=== PATIENT | male | born 1970 | race Caucasian/White ===

== ENCOUNTER 2024-10-16 16:39 | Outpatient (REF) | payer MEDICARE, MEDICAID, SELFPAY ==
[2024-10-17 22:57] LABS: Campylobacter PCR Negative (Negative); Salmonella PCR Negative (Negative); Shiga Toxin PCR Negative (Negative); Shigella/Enteroinvasive Ecoli Negative (Negative)
== END 2024-10-16 16:40 | disposition home or self-care (01) ==
LOC: NCHCN 16:39
PROVIDERS: PCP Internal Medicine; Visit Provider Physician Assistant
DX: R19.7 Diarrhea, unspecified (principal)
CPT/HCPCS: 87505; 87177

== ENCOUNTER → 2024-11-08 13:41 | Outpatient (BNVA) | payer MEDICARE, MEDICAID, SELFPAY | PROVIDERS: PCP Internal Medicine; Referring Provider Internal Medicine; Visit Provider Surgery | DX: K40.90 Unilateral inguinal hernia, without obstruction or gangrene, not specified as recurrent (principal); G80.9 Cerebral palsy, unspecified; Z91.81 History of falling; I73.00 Raynaud's syndrome without gangrene; R13.10 Dysphagia, unspecified; K59.09 Other constipation; R32 Unspecified urinary incontinence; R62.50 Unspecified lack of expected normal physiological development in childhood | CPT/HCPCS: 99203 ==

== ENCOUNTER 2025-09-09 10:10 | Observation (INO) | payer MEDICARE, MEDICAID, SELFPAY ==
[2025-09-09 10:29] VITALS: BP 146/94; PULSE 141; RESP 20; TEMP 36.7; O2SAT 97
--- NOTE | 2025-09-09 10:30 | RT.EKG_ITS ---
APPROVED REPORT Exam: Resting ECG Reason for Exam: tachycardia Patient Location: E HR:125 bpm ECG Measurements Heart Rate 125 AXIS AR 132 P 65 QRSd 78 QRS 72 QT 291 T 42 QTc 420 Conclusion Sinus tachycardia...rate> 99
[2025-09-09 10:39] VITALS: BP 146/94; PULSE 141; RESP 20; TEMP 36.7; O2SAT 97
--- NOTE | 2025-09-09 10:41 | ED.GENADUL_ITS ---
Discharge Plan Disposition Patient Disposition: Admit to [facility] Condition: Stable Discharge Details Clinical Impression: Gallstone pancreatitis Primary Care Provider: Buck Clark ED Provider: Harley Whitfield Home Meds and New Rx's Prescriptions: No Action No Known Home Meds HPI General Date/Time Provider Initiated Documentation: 09/09/25 10:40 . HPI Narrative: 55 year-old male presents to ED today by POV/ambulating with homecare providers with a chief complaint of vomiting this morning, dark colored. Patient is semi- verbal with cerebral palsy. Quality described as unable to qualify, no radiation to fever, cough, inability to swallow, incontinence, syncope, altered mental status from baseline. Severity is described as unable to quantify. Palliating factors include nothing specific attempted. Provoking factors include nothing specific. Events leading up to the incident/Associated Symptoms: Patient is relatively healthy other than his developmental delay and takes no medications. Patient not anticoagulated. Related Data Home Medications Medication Instructions Recorded Confirmed Unknown [No Known Home Meds] 09/09/25 1 11/09/24 Allergies Allergy/AdvReac Type Severity Reaction Status Date / Time Barbiturates Allergy Unknown Other (See Verified 09/09/25 10:49 Comment) pseudoephedrine Allergy Unknown Other (See Verified 09/09/25 10:49 Comment) actified Allergy Unknown Uncoded 09/09/25 10:49 Cat gut sutures Allergy Unknown Uncoded 09/09/25 10:49 sedatives Allergy Unknown Uncoded 09/09/25 10:49 General Stated Complaint: Nausea/Vomit/Diar DOC: 3 Review of Systems All systems reviewed & are unremarkable except as noted in HPI and below Exam Narrative Exam Narrative: GENERAL APPEARANCE: Well-nourished, non-toxic, awake and alert, atraumatic, mild acute distress. SKIN: Warm, pink, dry, intact, without rashes/lesions/ulcerations. HEAD: Normocephalic, atraumatic, normal hair distribution for gender/age. EYES: Normal conjunctiva, no exudates on lids/lashes. ENT: Nares patent, no circumoral cyanosis, no facial swelling NECK: Supple, trachea midline, painless cervical ROM. LUNGS/CHEST: Lungs CTA bilaterally- no rhonchi/rales/wheezes diffusely, non- labored respirations, normal A/P diameter, symmetrical expansion, no chest wall deformity HEART (CV/PV): Regular rate and rhythm without murmur, no peripheral edema, no JVD. ABDOMEN: Soft, non-distended, no guarding, no overt pain response to palpation, negative Blair's sign. MSK: Normal ROM, no swelling/deformity to bilateral UEs or LEs, moving all extremities without weakness, no cyanosis, spine midline without tenderness, normal curvature. NEURO: Mental Status - follows spontaneous activity, engages verbally spontaneously No facial droop, no forehead involvement. Motor: No focal weakness Sensory: sensation intact to light touch globally. Gait NT PSYCH: euthymic, cooperative, pleasant, baseline speech Course Vital Signs Vital signs: Vital Signs Temperature 36.7 C 09/09/25 10:29 Pulse 141 H 09/09/25 10:29 Respiratory Rate 20 09/09/25 10:29 Blood Pressure 146/94 H 09/09/25 10:29 Pulse Oximetry 97 09/09/25 10:29 Temperature 36.7 C 09/09/25 10:39 Temperature Source Oral 09/09/25 10:39 Pulse 141 H 09/09/25 10:39 Respiratory Rate 20 09/09/25 10:39 Blood Pressure 146/94 H 09/09/25 10:39 Blood Pressure Position Sitting 09/09/25 10:39 Pulse Oximetry 97 09/09/25 10:39 Oxygen Delivery Method Room Air 09/09/25 10:29 Oxygen Flow Rate 0 09/09/25 10:29 Medical Decision Making This dictation utilizes [id number] dictation software and may contain unedited grammatical errors. 55 year-old male presents to ED today by POV/ambulating with homecare providers with a chief complaint of vomiting this morning, dark colored. Patient is semi- verbal with cerebral palsy. Quality described as unable to qualify, no radiation to fever, cough, inability to swallow, incontinence, syncope, altered mental status from baseline. Severity is described as unable to quantify. Palliating factors include nothing specific attempted. Provoking factors include nothing specific. Events leading up to the incident/Associated Symptoms: Patient is relatively healthy other than his developmental delay and takes no medications. Patients' medical history: Left inguinal hernia, difficulty swallowing. Family and social history: Lives at home with care providers, eats a normal diet. Pertinent exam findings / vital signs include benign abdomen, benign cardiopulmonary exam with sinus tachycardia, nontoxic and afebrile, negative Blair sign. Differential / pathologies of concern include gastroenteritis, gastritis, GI bleeding, biliary colic, renal colic, sepsis, aspiration pneumonia. Diagnostic studies of: - CBC, CMP, lactate, lipase, troponin, TSH, magnesium, blood cultures, XR chest, CT ABD/pelvis with contrast, US ABD RUQ, EKG. - CBC shows very nonspecific mild leukocytosis WBCs 11.7 without left shift - Lactate mildly elevated 2.2 likely in setting of vomiting - CMP is unremarkable - Serial troponins negative - Lipase elevated to 192 - TSH within normal limits - Blood cultures pending - EKG shows sinus tachycardia without ischemic changes or diffuse ST depressions or T wave abnormalities - CT ABD/pelvis shows a distended gallbladder with a gas bubble indicating possible stone, normal CBD - X-ray chest shows no acute findings - Ultrasound shows multiple gallstones with normal gallbladder wall thickness and a normal CBD Interventions of: - 1 g IV Tylenol, 1 L IVF NS, 3.375g Zosyn - Consulted with hospitalist Dr. Charles at 1440 presented for admission after consultation with Dr. Mariee at 1430-repeat lipase in the morning, serial examinations, +/- MRCP tomorrow versus elective lap katey - Updated the patient's sister who is his medical guardian at 1456 ED Course/Assessment/Plan: 55-year-old male with cerebral palsy presents with vomiting this morning, elevated lipase and some distention of gallbladder on CT with reassuring ultrasound, I discussed with surgery on-call Dr. Mariee, he likely had a brief episode of gallstone pancreatitis and due to his developmental delay admission is prudent for recheck of lipase tomorrow and further imaging studies possible at that time, hospitalist service accepted the patient he has received Tylenol and fluids, surgery recommends antibiotics which were added in the ER, starting Zosyn. Disposition of gallstone pancreatitis. Patient verbalized understanding of the plan and return to ED criteria and engaged in shared decision making. Medical Records Medical records reviewed: Yes I reviewed the patient's medical records. Imaging Data Radiologic Study: Attestation: I personally reviewed and interpreted this imaging study as follows: Imaging: CT Scan Radiologist's impression: EXAM: CT ABDOMEN PELVIS W CLINICAL HISTORY: vomiting; nonverbal, abdominal pain. TECHNIQUE: Imaging Protocol: Axial computed tomography images with coronal and sagittal reformatted images were created and reviewed CONTRAST MATERIAL: Intravenous: Omnipaque-350 75cc Oral: None COMPARISON: CR XR CHEST 1V IN DI DEPT from 09/09/2025 FINDINGS: VISUALIZED LUNG BASES: No nodules nor pleural effusions evident. ABDOMEN: There is no ascites. LIVER: There are no focal hepatic lesions evident. No dilated intrahepatic ducts. GALLBLADDER/BILIARY: Gallbladder is mildly distended. There are no calcified gallstones but there is a solitary tiny hypodensity in the gallbladder which may be evidence of a noncalcified gallstone (series 8/image 40). The gallbladder wall does not appear edematous and there is no pericholecystic fluid. CBD is not dilated. PANCREAS: No evidence of pancreatic mass nor dilatation of the pancreatic duct. SPLEEN: Spleen is not enlarged. No obvious intrasplenic lesions. Splenic and portal veins are patent. ADRENALS: There are no significant adrenal masses. KIDNEYS:There are few bilateral tiny sub cm cortical cysts. These do not require further workup. No solid renal masses. No calculi nor hydronephrosis.. ABDOMINAL AORTA: Abdominal aorta is not enlarged. LYMPH NODES:There is no retroperitoneal nor paraaortic adenopathy. ABDOMINAL WALL: No evidence of significant anterior abdominal wall nor inguinal hernia. GI: There is some circumferential thickening of the lower esophagus evident. May indicate esophagitis. No obvious abnormality in the stomach and duodenum and no evidence of small-bowel obstruction, free air, nor abscess. PELVIS: GI: The appendix is difficult to identify.Redundant sigmoid. No obvious diverticulitis. LYMPH NODES: There is no intrapelvic nor inguinal adenopathy. REPRODUCTIVE: Prostate size normal. Seminal vesicles unremarkable. URINARY BLADDER: Mild uniform thickening of the urinary bladder. No calculi ureterovesical junctions. OSSEOUS: No fractures and no significant osseous lesions. IMPRESSION: 1. Moderately distended gallbladder. No calcified gallstones but there is a single tiny gas bubble in the gallbladder lumen which may be associated with a subtle gallstone not able to be visualized on CT scan. Therefore recommend ultrasound if clinically indicated. The CBD is not dilated. 2. There is circumferential thickening of the lower esophagus. May represent esophagitis or other pathology. Appropriate follow-up recommended. 3. Appendix not able to be identified. Report called by myself to ER physician 09/09/2025 at 12:37 p.m. Radiologic Study #2: Attestation: I personally reviewed and interpreted this imaging study as follows: Imaging: X-Ray Radiologist's impression: EXAM: XR CHEST 1V IN DI DEPT CLINICAL HISTORY: tachycardia. TECHNIQUE: 2D digital imaging was performed. COMPARISON: No exams were available for comparison FINDINGS: Single AP portable view. Heart size is upper normal. The mediastinum is not widened. Lungs are clear. No infiltrates nor obvious pleural effusions. IMPRESSION: No acute pulmonary findings on this single AP portable view of the chest. Radiologic Study #3: Attestation: I personally reviewed and interpreted this imaging study as follows: Imaging: Ultrasound Radiologist's impression: EXAM: US ABDOMEN LIMITED CLINICAL HISTORY: cholecystitis? gallstone pancreatitis? TECHNIQUE: Ultrasound abdomen performed using standard protocol. COMPARISON: CT CT ABDOMEN PELVIS W from 09/09/2025 FINDINGS: There is no ascites evident. LIVER: There are no hepatic lesions evident nor dilatation of intrahepatic ducts. GALLBLADDER/BILIARY: Multiple gallstones in the gallbladder lumen. Gallbladder wall thickness is upper normal. There is no pericholecystic fluid The common hepatic duct isnot dilated, measuring 3-4mm at the level of homero hepatis. PANCREAS: There is no evidence of pancreatic mass nor dilatation of the pancreatic duct. RIGHT KIDNEY:No evidence of solid mass, calculus, nor hydronephrosis. IMPRESSION: 1. Cholelithiasis. There multiple gallstones noted. Gallbladder wall thickness is upper normal. CBD is not dilated. 2. No other significant ultrasound findings in the right upper quadrant. 3. There is no ascites. Lab Data Lab results reviewed: Yes I reviewed the patient's lab results. Labs: 09/09/25 11:49 Blood Blood Culture - Pending 09/09/25 11:10 Blood Blood Culture - Pending Laboratory Tests Range/Units 09/09/25 09/09/25 11:10 12:13 WBC (4.4-10.8) 10^3/uL 11.79 H RBC (4.36-5.78) 10^6/uL 5.21 Hgb (13.5-17.5) g/dL 16.1 Hct (40.0-50.0) % 45.9 MCV (80-95) fL 88 MCH (27.0-33.0) pg 30.9 MCHC (32.0-36.0) % 35.1 RDW (11.8-14.1) % 12.2 Plt Count (130-400) 10^3/uL 257 MPV (8.0-11.0) fL 8.7 Immature Gran % % 0.3 Neutrophils % % 90.8 Lymphocytes % % 3.5 Monocytes % % 5.0 Eosinophils % % 0.1 Basophils % % 0.3 Nucleated RBC % (0.0-0.3) % 0.0 Absolute Neutrophils (1.2-6.7) 10^3/uL 10.71 H Absolute Lymphocytes (1.2-3.4) 10^3/uL 0.41 L Absolute Monocytes (0.1-0.8) 10^3/uL 0.59 Absolute Eosinophils (0.0-0.7) 10^3/uL 0.01 Absolute Basophils (0.0-0.2) 10^3/uL 0.04 VBG Lactate (<or=2.0) mmol/L 2.2 H* Sodium (136-145) mmol/L 139 Potassium (3.5-5.1) mmol/L 4.0 Chloride (98-107) mmol/L 99 Carbon Dioxide (21.0-32.0) mmol/L 29.1 Anion Gap (3-11) mmol/L 10.9 BUN (7-18) mg/dL 17 Creatinine (0.70-1.30) mg/dL 1.2 Est GFR (CKD-EPI 2020) (mL/min/1.73m2) 70.53 Glucose (74-106) mg/dL 150 H Calcium (8.5-10.1) mg/dL 8.8 Magnesium (1.8-2.4) mg/dL 2.1 Total Bilirubin (0.2-1.0) mg/dL 0.7 AST (15-37) U/L 16 ALT (16-63) U/L 27 Alkaline Phosphatase (46-116) U/L 124 H Troponin I (<or=76) ng/L 9 7 Total Protein (6.4-8.2) g/dL 8.0 Albumin (3.4-5.0) g/dL 4.0 Lipase (<78) U/L 192 H TSH (0.36-3.74) uIU/mL 1.69 PFSH All Active Problems (Updated 09/09/25 @ 15:03 by DENNYS Dickerson) Gallstone pancreatitis (Acute) Gallstone pancreatitis (Acute) Left inguinal hernia (Acute) Risk for falls (Acute) Urinary incontinence (Acute) Raynaud's disease (Acute) Insomnia (Acute) Difficulty swallowing (Acute) Developmental delay, moderate (Acute) Chronic constipation (Acute) Cerebral palsy (Acute) Medical History (Updated 09/09/25 @ 15:03 by DENNYS Dickerson) Encounter for colorectal cancer screening using Cologuard test 09/26/2024 Cologuard, Negative, repeat 3 years Backache Social History Smoking/Tobacco Use Status: Never Smoking risk assessment performed?: Yes Alcohol Intake: never Substance use type: does not use
--- NOTE | 2025-09-09 11:00 | DI.CT_ITS ---
Exam(s) CT ABDOMEN PELVIS W EXAM: CT ABDOMEN PELVIS W CLINICAL HISTORY: vomiting; nonverbal, abdominal pain. TECHNIQUE: Imaging Protocol: Axial computed tomography images with coronal and sagittal reformatted images were created and reviewed CONTRAST MATERIAL: Intravenous: Omnipaque-350 75cc Oral: None COMPARISON: CR XR CHEST 1V IN DI DEPT from 09/09/2025 FINDINGS: VISUALIZED LUNG BASES: No nodules nor pleural effusions evident. ABDOMEN: There is no ascites. LIVER: There are no focal hepatic lesions evident. No dilated intrahepatic ducts. GALLBLADDER/BILIARY: Gallbladder is mildly distended. There are no calcified gallstones but there is a solitary tiny hypodensity in the gallbladder which may be evidence of a noncalcified gallstone (series 8/image 40). The gallbladder wall does not appear edematous and there is no pericholecystic fluid. CBD is not dilated. PANCREAS: No evidence of pancreatic mass nor dilatation of the pancreatic duct. SPLEEN: Spleen is not enlarged. No obvious intrasplenic lesions. Splenic and portal veins are patent. ADRENALS: There are no significant adrenal masses. KIDNEYS:There are few bilateral tiny sub cm cortical cysts. These do not require further workup. No solid renal masses. No calculi nor hydronephrosis.. ABDOMINAL AORTA: Abdominal aorta is not enlarged. LYMPH NODES:There is no retroperitoneal nor paraaortic adenopathy. ABDOMINAL WALL: No evidence of significant anterior abdominal wall nor inguinal hernia. GI: There is some circumferential thickening of the lower esophagus evident. May indicate esophagitis. No obvious abnormality in the stomach and duodenum and no evidence of small-bowel obstruction, free air, nor abscess. PELVIS: GI: The appendix is difficult to identify.Redundant sigmoid. No obvious diverticulitis. LYMPH NODES: There is no intrapelvic nor inguinal adenopathy. REPRODUCTIVE: Prostate size normal. Seminal vesicles unremarkable. URINARY BLADDER: Mild uniform thickening of the urinary bladder. No calculi ureterovesical junctions. OSSEOUS: No fractures and no significant osseous lesions. IMPRESSION: 1. Moderately distended gallbladder. No calcified gallstones but there is a single tiny gas bubble in the gallbladder lumen which may be associated with a subtle gallstone not able to be visualized on CT scan. Therefore recommend ultrasound if clinically indicated. The CBD is not dilated. 2. There is circumferential thickening of the lower esophagus. May represent esophagitis or other pathology. Appropriate follow-up recommended. 3. Appendix not able to be identified. Report called by myself to ER physician 09/09/2025 at 12:37 p.m. RADIATION DOSE DELIVERED: 630.04mGy.cm Total DLP DATA REPOSITORY: All CT scans at this facility are submitted to the National Radiology Data Registry (NRDR) Dose Index Registry (DIR) with the [employer] (A[employer]). RADIATION OPTIMIZATION: All CT scans at this facility use at least one of these dose optimization techniques: automated exposure control; mA and/or kV adjustment per patient size (includes targeted exams where dose is matched to clinical indication); or iterative reconstruction.
--- NOTE | 2025-09-09 11:00 | DI.RAD_ITS ---
Exam(s) XR CHEST 1V IN DI DEPT EXAM: XR CHEST 1V IN DI DEPT CLINICAL HISTORY: tachycardia. TECHNIQUE: 2D digital imaging was performed. COMPARISON: No exams were available for comparison FINDINGS: Single AP portable view. Heart size is upper normal. The mediastinum is not widened. Lungs are clear. No infiltrates nor obvious pleural effusions. IMPRESSION: No acute pulmonary findings on this single AP portable view of the chest. DATA REPOSITORY: RADIATION DOSE DELIVERED:
[2025-09-09 11:29] LABS: Abs Immature Grans 0.04 10^3/uL (0.0-0.06); HCT 45.9 % (40.0-50.0); HGB 16.1 g/dL (13.5-17.5); Immature Grans % 0.3 %; MCH 30.9 pg (27.0-33.0); MCHC 35.1 % (32.0-36.0); MCV 88 fL (80-95); MPV 8.7 fL (8.0-11.0); Platelet Count 257 10^3/uL (130-400); RBC 5.21 10^6/uL (4.36-5.78); RDW 12.2 % (11.8-14.1); RDW-SD 39.1 fL; WBC 11.79 10^3/uL (4.4-10.8)
[2025-09-09] MEDS: Normal Saline - Diluent 50 ML VIAL IJ (12:08)
[2025-09-09] MEDS: Omnipaque 350 MG/ML 100 ML BTL IJ (12:08)
[2025-09-09] MEDS: Normal Saline Flush 10 ML SYR IVP (12:09)
[2025-09-09] MEDS: Normal Saline 1,000 ML 1000 ML IV (12:12)
[2025-09-09] MEDS: ACETAMINOPHEN 1,000 MG/100 ML BAG 400 MG IVPB ×2 (12:12→20:25)
[2025-09-09 12:18] LABS: ALT 27 U/L (16-63); AST 16 U/L (15-37); Albumin 4.0 g/dL (3.4-5.0); Alkaline Phosphatase 124 U/L (46-116); Anion Gap 10.9 mmol/L (3-11); BUN 17 mg/dL (7-18); Bilirubin, Total 0.7 mg/dL (0.2-1.0); CO2 29.1 mmol/L (21.0-32.0); Calcium 8.8 mg/dL (8.5-10.1); Chloride 99 mmol/L (98-107); Glucose 150 mg/dL (74-106); Lipase 192 U/L (<78); Magnesium 2.1 mg/dL (1.8-2.4); Potassium 4.0 mmol/L (3.5-5.1); Sodium 139 mmol/L (136-145); TSH (W/Ref FT4) 1.69 uIU/mL (0.36-3.74); Total Protein 8.0 g/dL (6.4-8.2); Troponin I 9 ng/L (<or=76)
--- NOTE | 2025-09-09 12:30 | DI.US_ITS ---
Exam(s) US ABDOMEN LIMITED EXAM: US ABDOMEN LIMITED CLINICAL HISTORY: cholecystitis? gallstone pancreatitis? TECHNIQUE: Ultrasound abdomen performed using standard protocol. COMPARISON: CT CT ABDOMEN PELVIS W from 09/09/2025 FINDINGS: There is no ascites evident. LIVER: There are no hepatic lesions evident nor dilatation of intrahepatic ducts. GALLBLADDER/BILIARY: Multiple gallstones in the gallbladder lumen. Gallbladder wall thickness is upper normal. There is no pericholecystic fluid The common hepatic duct isnot dilated, measuring 3-4mm at the level of homero hepatis. PANCREAS: There is no evidence of pancreatic mass nor dilatation of the pancreatic duct. RIGHT KIDNEY:No evidence of solid mass, calculus, nor hydronephrosis. IMPRESSION: 1. Cholelithiasis. There multiple gallstones noted. Gallbladder wall thickness is upper normal. CBD is not dilated. 2. No other significant ultrasound findings in the right upper quadrant. 3. There is no ascites. DATA REPOSITORY:
[2025-09-09 12:45] LABS: Troponin I 7 ng/L (<or=76)
--- NOTE | 2025-09-09 14:12 | W.SURGCON ---
Date of service: 09/09/25 Time of Service: 14:12 Assessment and Plan Assessment and plan (1) Gallstone pancreatitis: Status: Acute Assessment and plan: The elevated lipase is certainly consistent with pancreatitis, and based on the gallstones seen on the ultrasound, that is most likely the etiology. At this point, there is no compelling biochemical evidence of obstruction of the common bile duct nor does the ultrasound suggest the possibility of a common bile duct stone. Hopefully, this stone that close the pancreatitis is already passed. For now, he should be admitted for resuscitation, and symptom management. We should repeat the LFTs and lipase tomorrow. If those are all reassuring and trending in the correct direction, then laparoscopic cholecystectomy to reduce the likelihood of gallstone pancreatitis recurrence is most appropriate. If there is any evidence of increasing bilirubin, or ongoing pancreatitis, then though should be addressed before surgery. History of Present Illness History of Present Illness Chief Complaint: Vomiting Narrative: Shiva is 55 years old. He has cerebral palsey and is assisted at home with a healthcare provider and respite assistance. Today, they found him with large volume non-bloody emesis. Otherwise, he appeared his usual self. They brought him to the Emergency Department where he was found to have a mild leukocytosis. He also had an elevated lipase level. He underwent a CT scan of the abdomen and pelvis that suggested cholelithiasis. Follow up ultrasound was consistent with gallstones without evidence of biliary ductal dilation or acute cholecystitis. Review of Systems Narrative: His mental status precludes accurate ROS, but care providers deny any meaningful complaints from constitutional, cardio, respiratory, musculoskeletal or hematologic systems. He had vomiting mentioned above and maybe decreased urine output. PFSH All Active Problems (Updated 09/09/25 @ 15:29 by Rozina Ma APRN) Hyperlactatemia (Acute) On deep vein thrombosis (DVT) prophylaxis (Acute) Nausea & vomiting (Acute) Pain management (Acute) Cholelithiasis (Acute) Gallstone pancreatitis (Acute) Gallstone pancreatitis (Acute) Left inguinal hernia (Acute) Risk for falls (Acute) Urinary incontinence (Acute) Raynaud's disease (Acute) Insomnia (Acute) Difficulty swallowing (Acute) Developmental delay, moderate (Acute) Chronic constipation (Acute) Cerebral palsy (Acute) Medical History (Updated 09/09/25 @ 15:29 by Rozina Francesca, STRUCTURAL IRON [employer]RECTOR) Encounter for colorectal cancer screening using Cologuard test 09/26/2024 Cologuard, Negative, repeat 3 years Backache Social History Smoking/Tobacco Use Status: Never Smoking risk assessment performed?: Yes Alcohol Intake: never Substance use type: does not use Housing: house Exam Const General: cooperative and not ill appearing Nutritional Appearance: thin Orientation: alert and awake Eyes General: appearance normal, both eyes and all related structures Neck Neck: normal visual inspection, full ROM and no lymphadenopathy GI Inspection: normal to inspection and non-distended Palpation: soft, no guarding and nontender Percussion: normal to percussion Auscultation: normal bowel sounds Skin General skin exam: no rashes or lesions noted Neuro General: patient alert and patient awake Extrem General: normal to inspection Results Last Vital Signs Temp 98.0 F 09/09/25 10:39 Pulse 141 H 09/09/25 10:39 Resp 20 09/09/25 10:39 BP 146/94 H 09/09/25 10:39 Pulse Ox 97 09/09/25 10:39 Labs 09/09/25 11:10 09/09/25 11:10 Labs: Laboratory Results - last 24 hr 09/09/25 09/09/25 11:10 12:13 WBC 11.79 H RBC 5.21 Hgb 16.1 Hct 45.9 MCV 88 MCH 30.9 MCHC 35.1 RDW 12.2 Plt Count 257 MPV 8.7 Immature Gran % 0.3 Neutrophils % 90.8 Lymphocytes % 3.5 Monocytes % 5.0 Eosinophils % 0.1 Basophils % 0.3 Nucleated RBC % 0.0 Absolute Neutrophils 10.71 H Absolute Lymphocytes 0.41 L Absolute Monocytes 0.59 Absolute Eosinophils 0.01 Absolute Basophils 0.04 VBG Lactate 2.2 H* Sodium 139 Potassium 4.0 Chloride 99 Carbon Dioxide 29.1 Anion Gap 10.9 BUN 17 Creatinine 1.2 Est GFR (CKD-EPI 2020) 70.53 Glucose 150 H Calcium 8.8 Magnesium 2.1 Total Bilirubin 0.7 AST 16 ALT 27 Alkaline Phosphatase 124 H Troponin I 9 7 Total Protein 8.0 Albumin 4.0 Lipase 192 H TSH 1.[address] scan report/results: report reviewed and image reviewed CT scan - pelvis: report reviewed and image reviewed Abdominal ultrasound report/results: report reviewed and image reviewed
--- NOTE | 2025-09-09 14:32 | W.PM.HP.N ---
Date of service: 09/09/25 Time of Service: 14:32 Assessment and Plan Assessment and plan (1) Gallstone pancreatitis: Status: Acute Assessment and plan: Continue IV fluid: LR at 100cc/hr Low-fat pureed diet Lipase, CMP, magnesium and CBC in the morning (2) Cholelithiasis: Status: Acute Assessment and plan: As per abdominal ultrasound findings Surgical consult completed please read notes Inpatient surgery versus outpatient depending on biochemical marker trends (3) Pain management: Status: Acute Assessment and plan: As needed acetaminophen As per Guardian : Kimberlyn Mariee- low tolerance sensitivity to opiods and would prefer them not to be given -Ok with APAP and Ketorolac As needed ketorolac (4) Nausea & vomiting: Status: Acute Assessment and plan: As needed ondansetron (5) Hyperlactatemia: Status: Acute Assessment and plan: Lactate - 2.2 Repeat pending (6) On deep vein thrombosis (DVT) prophylaxis: Status: Acute Assessment and plan: Low mostly with heparin Discussed with Dr. Charles History of Present Illness History of Present Illness Chief Complaint: vomitiung, abd pain Narrative: This 55 yo male with PMHx Severe cognitive delay, Raynaud's, constipation, insomnia presented to the ED for evaluation of sudden vomiting. CT of the abdomen and pelvis showed a moderately distended gallbladder. No calcified gallstones but there is a single tiny gas bubble in the gallbladder lumen which may be associated with a subtle gallstone; circumferential thickening of the lower esophagus concerning for esophagitis, Lab results were unremakable except for a Lipase at 192, ALk at 124, lactate 2.2, glucose at 150 , WBC of 11.79, Cr 1.2 no baseline available. The abdominal showed cholelithiasis w multiple gallstones and gallbladder wall thickness in the upper normal; CBD was not dilated. Surgical consult completed with Dr. Mariee confirmed findings consistent with pancreatitis without compelling evidence of obstruction of the common bile duct and most likely stone has been passed already but recommends admission for observation for resuscitation and symptom management with LFTs and lipase in the morning; depending on trend management would be laparoscopic cholecystectomy versus surgical management or MRCP. He was admitted to the medical surgical floor by hospitalist team for further evaluation and management. In the ED patient was treated with antiemetic IV fluid and pain meds medicine. Patient reports: Patient unable to report or denies symptoms d/t baseline communication as per PMHx above. 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 Full CODE STATUS confirmed by calling guardian/sister : Kimberlyn Mariee at [phone]- would like to be call at this number when needed. Review of Systems All systems reviewed & are unremarkable except as noted in HPI and below PFSH All Active Problems (Updated 09/09/25 @ 15:29 by Rozina Ma APRN) Hyperlactatemia (Acute) On deep vein thrombosis (DVT) prophylaxis (Acute) Nausea & vomiting (Acute) Pain management (Acute) Cholelithiasis (Acute) Gallstone pancreatitis (Acute) Gallstone pancreatitis (Acute) Left inguinal hernia (Acute) Risk for falls (Acute) Urinary incontinence (Acute) Raynaud's disease (Acute) Insomnia (Acute) Difficulty swallowing (Acute) Developmental delay, moderate (Acute) Chronic constipation (Acute) Cerebral palsy (Acute) Medical History (Updated 09/09/25 @ 15:29 by Rozina Ma APRN) Encounter for colorectal cancer screening using Cologuard test 09/26/2024 Cologuard, Negative, repeat 3 years Backache Social History Smoking/Tobacco Use Status: Never Smoking risk assessment performed?: Yes Alcohol Intake: never Substance use type: does not use Meds Allergies and Home Medications Allergies Allergy/AdvReac Type Severity Reaction Status Date / Time Barbiturates Allergy Unknown Other (See Verified 09/09/25 10:49 Comment) pseudoephedrine Allergy Unknown Other (See Verified 09/09/25 10:49 Comment) actified Allergy Unknown Uncoded 09/09/25 10:49 Cat gut sutures Allergy Unknown Uncoded 09/09/25 10:49 sedatives Allergy Unknown Uncoded 09/09/25 10:49 Home Medications Medication Instructions Recorded Confirmed Type Unknown [No Known Home Meds] 09/09/25 09/09/25 History Exam Narrative Exam Narrative: Alert and oriented x 4, no focal neurological deficit, unlabored breathing, S1-S2 regular, no murmur, PPP x 4, abdomen is nondistended soft tender left upper quadrant no guarding , negative Blair's sign, no CVA tenderness moves all 4 extremities Results Labs 09/09/25 11:10 09/09/25 11:10 Labs: Laboratory Results - last 24 hr 09/09/25 09/09/25 11:10 12:13 WBC 11.79 H RBC 5.21 Hgb 16.1 Hct 45.9 MCV 88 MCH 30.9 MCHC 35.1 RDW 12.2 Plt Count 257 MPV 8.7 Immature Gran % 0.3 Neutrophils % 90.8 Lymphocytes % 3.5 Monocytes % 5.0 Eosinophils % 0.1 Basophils % 0.3 Nucleated RBC % 0.0 Absolute Neutrophils 10.71 H Absolute Lymphocytes 0.41 L Absolute Monocytes 0.59 Absolute Eosinophils 0.01 Absolute Basophils 0.04 VBG Lactate 2.2 H* Sodium 139 Potassium 4.0 Chloride 99 Carbon Dioxide 29.1 Anion Gap 10.9 BUN 17 Creatinine 1.2 Est GFR (CKD-EPI 2020) 70.53 Glucose 150 H Calcium 8.8 Magnesium 2.1 Total Bilirubin 0.7 AST 16 ALT 27 Alkaline Phosphatase 124 H Troponin I 9 7 Total Protein 8.0 Albumin 4.0 Lipase 192 H TSH 1.69 Last Vital Signs Temp 36.7 C 09/09/25 10:39 Pulse 141 H 09/09/25 10:39 Resp 20 09/09/25 10:39 BP 146/94 H 09/09/25 10:39 Pulse Ox 97 09/09/25 10:39 Time Spent Time spent with Patient: >75 minutes Time was spent: preparing to see the patient(eg.review tests), obtaining and/or reviewing separately otained hiistory, ordering medications,tests, procedures, referring, communicating with other health managed care specialist, indepentently interpreting results, counseling the patient, care coordination and other
[2025-09-09] MEDS: PIPERACILLIN/TAZO 3.375 GM in Normal Saline 50 ML IVPB (15:07)
--- NOTE | 2025-09-09 15:53 | W.PC.ACHO ---
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 State since morning they have witnessed him vomiting x 4. Medical / Surgical History (Last Updated 11/07/24 @ 09:24 by Catie Cardenas CMA) Encounter for colorectal cancer screening using Cologuard test Backache Most Recent Vital Signs Temperature 36.7 C 09/09/25 10:39 Temperature Source Oral 09/09/25 10:39 Pulse 141 H 09/09/25 10:39 Respiratory Rate 20 09/09/25 10:39 Blood Pressure 146/94 H 09/09/25 10:39 Blood Pressure Position Sitting 09/09/25 10:39 Pulse Oximetry 97 09/09/25 10:39 Oxygen Delivery Method Room Air 09/09/25 10:29 Oxygen Flow Rate 0 09/09/25 10:29 Allergies Barbiturates Allergy (Unknown, Verified 09/09/25 10:49) Other (See Comment) on referral from PCP, unable to assess criticality pseudoephedrine Allergy (Unknown, Verified 09/09/25 10:49) Other (See Comment) on referral from PCP, unable to access criticality actified Allergy (Uncoded 09/09/25 10:49) Unknown Cat gut sutures Allergy (Uncoded 09/09/25 10:49) Unknown sedatives Allergy (Uncoded 09/09/25 10:49) Unknown Active Medications Generic Name Dose Route Start Last Admin Trade Name Freq PRN Reason Stop Dose Admin Iohexol 100 ml 09/09/25 12:15 09/09/25 12:08 Omnipaque 350 Mg/Ml 100 Ml Btl IJ 10/09/25 23:59 100 ml DIRECTED CRISTINA Administration Sodium Chloride 0 ml 09/09/25 12:04 09/09/25 12:09 Normal Saline Flush 10 Ml Syr IVP 10 ml PRN PRN Administration Sodium Chloride 50 ml 09/09/25 12:15 09/09/25 12:08 Normal Saline - Diluent 50 Ml Vial IJ 50 ml DIRECTED CRISTINA Administration IV IV Catheter Type [Right Saline Lock Antecubital] IV Catheter Gauge [Right 20 Antecubital] Diet Orders Category Date Time Status DIET [Fat Restricted] [DIET] Nutrition 09/09/25 Dinner Active DIET [Fat Restricted] [DIET] Nutrition 09/09/25 Dinner Active Diagnostics 09/09/25 09/09/25 09/09/25 Range/Units Unknown 12:13 11:10 WBC 11.79 H (4.4-10.8) 10^3/uL RBC 5.21 (4.36-5.78) 10^6/uL Hgb 16.1 (13.5-17.5) g/dL Hct 45.9 (40.0-50.0) % MCV 88 (80-95) fL MCH 30.9 (27.0-33.0) pg MCHC 35.1 (32.0-36.0) % RDW 12.2 (11.8-14.1) % Plt Count 257 (130-400) 10^3/uL MPV 8.7 (8.0-11.0) fL Immature Gran % 0.3 % Neutrophils % 90.8 % Lymphocytes % 3.5 % Monocytes % 5.0 % Eosinophils % 0.1 % Basophils % 0.3 % Nucleated RBC % 0.0 (0.0-0.3) % Absolute Neutrophils 10.71 H (1.2-6.7) 10^3/uL Absolute Lymphocytes 0.41 L (1.2-3.4) 10^3/uL Absolute Monocytes 0.59 (0.1-0.8) 10^3/uL Absolute Eosinophils 0.01 (0.0-0.7) 10^3/uL Absolute Basophils 0.04 (0.0-0.2) 10^3/uL VBG Lactate Pending 2.2 H* (<or=2.0) mmol/L Sodium 139 (136-145) mmol/L Potassium 4.0 (3.5-5.1) mmol/L Chloride 99 (98-107) mmol/L Carbon Dioxide 29.1 (21.0-32.0) mmol/L Anion Gap 10.9 (3-11) mmol/L BUN 17 (7-18) mg/dL Creatinine 1.2 (0.70-1.30) mg/dL Est GFR (CKD-EPI 2020) 70.53 (mL/min/1.73m2) Glucose 150 H (74-106) mg/dL Calcium 8.8 (8.5-10.1) mg/dL Magnesium 2.1 (1.8-2.4) mg/dL Total Bilirubin 0.7 (0.2-1.0) mg/dL AST 16 (15-37) U/L ALT 27 (16-63) U/L Alkaline Phosphatase 124 H (46-116) U/L Troponin I 7 9 (<or=76) ng/L Total Protein 8.0 (6.4-8.2) g/dL Albumin 4.0 (3.4-5.0) g/dL Lipase 192 H (<78) U/L TSH 1.69 (0.36-3.74) uIU/mL 09/09/25 11:49 Blood Culture - Pending Blood 09/09/25 11:10 Blood Culture - Pending Blood Intake and Output - 24 Hour Total 09/09/25 10:10 thru 09/09/25 14:59 Intake Total 1110 Balance 1110 Weight 63.049 kg Intake: IV 1110 Other: Stool Characteristics Soft Brown Emesis Description Bile Falls Risk Assessment History of Falls Previous History 09/09/25 14:58 Contributing Factors Unstable,Impairments, 09/09/25 14:58 Incontinence Ambulatory Aids Uses ambulatory device + 09/09/25 14:58 Tubes/Lines None 09/09/25 14:58 Gait Evaluation W/any additional score 09/09/25 14:58 Cognition Cognitive impairment 09/09/25 14:58 Fall Total Score 89 09/09/25 14:58 Level of Risk Maximum Risk 09/09/25 14:58 Problems (Last Updated 11/07/24 @ 09:24 by Catie Cardenas, [facility]) Hyperlactatemia (Acute) On deep vein thrombosis (DVT) prophylaxis (Acute) Nausea & vomiting (Acute) Pain management (Acute) Cholelithiasis (Acute) Gallstone pancreatitis (Acute) Gallstone pancreatitis (Acute) Attestation Statement: By documenting the first initial, last name, and credentials of the reporting nurse below, both parties acknowledge that all relevant information regarding the patient handoff has been communicated, and that all questions have been addressed to ensure continuity and safety of care. Additional Patient Information/Comments: Paged at [phone], report called at [phone], and ED called back at 1546. [address] RIOS currently running zosyn. Report Received From: Marci Bravo ED RN
[2025-09-09 16:16] VITALS: BP 118/82; PULSE 99; RESP 17; TEMP 36.9; O2SAT 100
[2025-09-09] MEDS: Lactated Ringers 1,000 ML 100 ML IV (17:55)
--- NOTE | 2025-09-09 18:14 | NUR.NOTE ---
Nursing Note: This nurse spoke with caregiver Jeanne Bravo and was told that Kimberlyn (sister) is guardian. Her best contact number is her cell and is [phone]. Kimberlyn signed off on pts HIPAA and consent to treat on the legal guardian line. This nurse reached out and was able to speak with Kimberlyn. This nurse updated Kimberlyn that the pt had been admitted to [facility] and received verbal permission to give ordered medications after reviewing them with her. This nurse requested that Kimberlyn send us a copy of the guardianship paperwork to fax # [phone] which Kimberlyn confirms that she will. Kimberlyn states her personal email is [email or web address] which we can send forms to be completed if needed. This nurse updated provider (Rozina Gandhi NP) who confirmed that she was able to touch base with Kimberlyn as well.
[2025-09-09 19:55] VITALS: BP 122/75; PULSE 111; RESP 20; TEMP 37; O2SAT 97
[2025-09-10] MEDS: Lactated Ringers 1,000 ML 100 ML IV (03:34)
[2025-09-10] MEDS: ACETAMINOPHEN 1,000 MG/100 ML BAG 400 MG IVPB ×2 (03:36→12:41)
[2025-09-10 04:05] VITALS: BP 125/82; PULSE 93; RESP 16; TEMP 36.8; O2SAT 95
[2025-09-10 06:50] LABS: Abs Immature Grans 0.03 10^3/uL (0.0-0.06); HCT 38.9 % (40.0-50.0); HGB 13.3 g/dL (13.5-17.5); Immature Grans % 0.5 %; MCH 30.7 pg (27.0-33.0); MCHC 34.2 % (32.0-36.0); MCV 90 fL (80-95); MPV 8.7 fL (8.0-11.0); Platelet Count 223 10^3/uL (130-400); RBC 4.33 10^6/uL (4.36-5.78); RDW 12.4 % (11.8-14.1); RDW-SD 40.4 fL; WBC 6.53 10^3/uL (4.4-10.8)
[2025-09-10 07:23] LABS: ALT 19 U/L (16-63); AST 15 U/L (15-37); Albumin 3.3 g/dL (3.4-5.0); Alkaline Phosphatase 97 U/L (46-116); Anion Gap 6.7 mmol/L (3-11); BUN 14 mg/dL (7-18); Bilirubin, Direct 0.2 mg/dL (0.0-0.2); Bilirubin, Total 0.7 mg/dL (0.2-1.0); CO2 29.3 mmol/L (21.0-32.0); Calcium 8.4 mg/dL (8.5-10.1); Chloride 106 mmol/L (98-107); Glucose 98 mg/dL (74-106); Lipase 62 U/L (<78); Magnesium 2.1 mg/dL (1.8-2.4); Potassium 4.0 mmol/L (3.5-5.1); Sodium 142 mmol/L (136-145); Total Protein 6.3 g/dL (6.4-8.2)
[2025-09-10 07:37] VITALS: BP 110/76; PULSE 89; RESP 17; TEMP 36.4; O2SAT 97
--- NOTE | 2025-09-10 08:07 | W.PM.PROGNOT ---
Date of Service Date of service: 09/10/25 Time of Service: 08:05 Assessment and Plan Assessment and plan (1) Gallstone pancreatitis: Status: Acute Assessment and plan: On exam, Shiva continues to have abdominal tenderness and guarding. AM labs are reassuring that gallstone was passed. Will continue NPO status, until we determine if he will undergo laparoscopic cholecystectomy later today, which will reduce his risk of gallstone pancreatitis in the future. Will continue with IV fluids and pain management. Subjective Subjective Interval history since last seen: Arrive with Shiva, resting. Exam Const General: cooperative, healthy appearing and comfortable Resp Effort & Inspection: normal respiratory effort, no audible wheezes and no cough GI Inspection: normal to inspection and non-distended Palpation: soft, guarding and tender Objective Last Vital Signs Temp 36.4 C L 09/10/25 07:37 Pulse 89 09/10/25 07:37 Resp 17 09/10/25 07:37 BP 110/76 09/10/25 07:37 Pulse Ox 97 09/10/25 07:37 Laboratory Results - last 24 hr 09/09/25 09/09/25 09/09/25 11:10 12:13 18:02 WBC 11.79 H RBC 5.21 Hgb 16.1 Hct 45.9 MCV 88 MCH 30.9 MCHC 35.1 RDW 12.2 Plt Count 257 MPV 8.7 Immature Gran % 0.3 Neutrophils % 90.8 Lymphocytes % 3.5 Monocytes % 5.0 Eosinophils % 0.1 Basophils % 0.3 Nucleated RBC % 0.0 Absolute Neutrophils 10.71 H Absolute Lymphocytes 0.41 L Absolute Monocytes 0.59 Absolute Eosinophils 0.01 Absolute Basophils 0.04 VBG Lactate 2.2 H* 1.8 Sodium 139 Potassium 4.0 Chloride 99 Carbon Dioxide 29.1 Anion Gap 10.9 BUN 17 Creatinine 1.2 Est GFR (CKD-EPI 2020) 70.53 Glucose 150 H Calcium 8.8 Magnesium 2.1 Total Bilirubin 0.7 Conjugated Bilirubin AST 16 ALT 27 Alkaline Phosphatase 124 H Troponin I 9 7 Total Protein 8.0 Albumin 4.0 Lipase 192 H TSH 1.69 09/10/25 06:24 WBC 6.53 RBC 4.33 L Hgb 13.3 L D Hct 38.9 L MCV 90 MCH 30.7 MCHC 34.2 RDW 12.4 Plt Count 223 MPV 8.7 Immature Gran % 0.5 Neutrophils % 69.1 Lymphocytes % 15.2 Monocytes % 11.5 Eosinophils % 3.2 Basophils % 0.5 Nucleated RBC % 0.0 Absolute Neutrophils 4.52 Absolute Lymphocytes 0.99 L Absolute Monocytes 0.75 Absolute Eosinophils 0.21 Absolute Basophils 0.03 VBG Lactate Sodium 142 Potassium 4.0 Chloride 106 Carbon Dioxide 29.3 Anion Gap 6.7 BUN 14 Creatinine 1.0 Est GFR (CKD-EPI 2020) 87.78 Glucose 98 Calcium 8.4 L Magnesium 2.1 Total Bilirubin 0.7 Conjugated Bilirubin 0.2 AST 15 ALT 19 Alkaline Phosphatase 97 Troponin I Total Protein 6.3 L Albumin 3.3 L Lipase 62 TSH Time Spent with Patient Time Spent with Patient: <25 minutes Time was spent: preparing to see the patient(eg.review tests), obtaining and/or reviewing separately otained hiistory and indepentently interpreting results
--- NOTE | 2025-09-10 09:16 | INITIAL_ITS ---
Date of service: 09/10/25 Time of Service: 09:17 Care Management Initial Assmt Initial Assessment Reason for Hospitalization: gallstone pancreatitis Functional Status/Living Situation Patient Presentation: Shiva presented to the ED yesterday with his caregivers with c/o vomiting dark colored material earlier in the day. Shiva was found to have gallstone pancreatitis. He had a surgical consult and was admitted to observation for pain control and IVF, as he has been made NPO for a question of a cholecystectomy. Shiva has cerebral palsy, is not fully verbal. Shiva has 24/7 caregivers, and his sister, Kimberlyn, is his guardian. Shiva seemed happy and not in pain when CM met with him this morning. He was not able to fully converse with CM. CM spoke with Shiva's sister and guardian, Kimberlyn. She was not pleased with staff that she was not able to speak with anyone regarding Shiva. [facility] did not have Kimberlyn listed as a HIPAA contact, and guardianship paperwork was not in the chart. CM encouraged Kimberlyn to bring in the paperwork, and complete a new HIPAA. CM attempted to call Kimberlyn back later in the day with some updated news, but had to leave a message. Shiva had his caregivers all present this afternoon. It was apparent to CM that Shiva and his caregivers really care about each other. CM was present when the provider spoke with the caregivers. The surgeon reached out to Kimberlyn earlier today. Plan is for a cholecystectomy tomorrow, but surgery needs the permission of Kimberlyn to proceed. Kimberlyn had not yet returned the call to surgery. Clem, one of the caregivers, stated that he would notify Kimberlyn that she needs to call surgery. Town of Residence: [place] Resides with: Other Significant Other/Family: Local (sister, Kimberlyn is Shiva's guardian) Caregiver/Guardian: Kimberlyn Mariee- guardian caregivers, Clem and Jeanne Soria Employment Status: Disabled Instrumental Activities of Daily Living (ADLs): Requires support Medications Medication Management: No Issues/Barriers identified Advance Directives Advance Directives: Do you have an Advance Directive: AD On File at [facility]: N 03/20/24, 16:16 Date Asked 06/30/12 03/20/24, 16:16 AD Date Reviewed COLST On File at [facility] COLST Date Scanned Code Status Resuscitation Status Full Code Insurance Coverage/Financial Issues Insurance: Medicare Part A & B - Medicaid [facility] Care Team Visit Care Team Role Provider Type Buck Clark Primary Care Provider NON-[facility] STAFF PHYSICIAN DENNYS Dickerson Emergency Provider PHYSICIANS ASSISTANT Christopher Charles MD Admit Provider [facility] STAFF PHYSICIAN Attending Provider Discharge Potential Discharge Needs: PCP F/U Appt and Surgical F/U Appt Anticipated Barriers to Discharge: None Identified Patient/Family Education Needs: Review discharge instructions, discuss Ask Me Three Plan: Shiva will likely have a cholecystectomy tomorrow. He will likely remain overnight tomorrow and discharge next day with no new services. Shiva will transport home in a private vehcile. CM will continue to follow and update the plan as needed. Social Determinants of Health Screening Social Determinants of health last assessed in clinic: 09/10/25 Will the Patient Participate in the Screening?: Yes Do you worry about having a steady place to live?: no Problems where you live: no known problems In the past 12 months, have you had to go without electric, gas, oil or water in your home?: no 1. Within the past 12 months, we worried whether our food would run out before we got money to buy more.: Don't know/refused 2. Within the past 12 months, the food we bought just didn't last and we didn't have money to get more.: Don't know/refused Has lack of transportation kept you from medical appointments or from doing things needed for daily living?: no Has anyone in your life made you feel unsafe or unsupported?: no How hard is it for you to pay for the very basics like food, housing, medical care, and heating? Would you say it is:: Not hard at all Do you want help finding or keeping work or a job?: I do not need or want help If for any reason you need help with day-to-day activities such as bathing, preparing meals, shopping, managing finances, etc., do you get the help you need?: I could use a little more help How often do you feel lonely or isolated from those around you?: Never Do you speak a language other than Lao at home?: No Does the patient want assistance with any of the above?: No Health Related Social Needs Health related social needs: problems with daily activities (Z73.9) Health related social needs details: Pt has caregivers: Jeanne, Clem, and Natalie Hickman. Kimberlyn (sister) is guardian. PFSH All Active Problems (Updated 09/09/25 @ 15:29 by Rozina Ma APRN) Hyperlactatemia (Acute) On deep vein thrombosis (DVT) prophylaxis (Acute) Nausea & vomiting (Acute) Pain management (Acute) Cholelithiasis (Acute) Gallstone pancreatitis (Acute) Gallstone pancreatitis (Acute) Left inguinal hernia (Acute) Risk for falls (Acute) Urinary incontinence (Acute) Raynaud's disease (Acute) Insomnia (Acute) Difficulty swallowing (Acute) Developmental delay, moderate (Acute) Chronic constipation (Acute) Cerebral palsy (Acute) Medical History (Updated 09/09/25 @ 15:29 by Rozina Ma APRN) Encounter for colorectal cancer screening using Cologuard test 09/26/2024 Cologuard, Negative, repeat 3 years Backache Social History Smoking/Tobacco Use Status: Never Smoking risk assessment performed?: Yes Alcohol Intake: never Substance use type: does not use Housing: house
--- NOTE | 2025-09-10 09:26 | PGE_ITS ---
Date of Service Date of service: 09/10/25 Time of Service: 09:26 Assessment and Plan Assessment and plan (1) Gallstone pancreatitis: Status: Acute Assessment and plan: Continue IV fluid: LR at 100cc/hr plan for NPO for OR lap cholecystectomy cancelled -consider e-initiating ceftriaxone and metronidazole prior to OR - will hold for now as - Trend CMP, magnesium and CBC and Inflammatory marker Low-fat pureed diet if tolerating enteral intake s/p OR (2) Cholelithiasis: Status: Acute Assessment and plan: As per abdominal ultrasound findings on presentation Surgical consult completed and seen this AM :please read notes -Dr Mariee will contacted guardian/ sister for OR today --but no return of call this PM Diet resumed NPO post midnight for possibilty for OR on 09/11/25 (3) Pain management: Status: Acute Assessment and plan: Continue a acetaminophen and as needed ketorolac As per Guardian : Kimberlyn Mariee- low tolerance sensitivity to opiods and would prefer them not to be given -Ok with APAP and Ketorolac PT consult (4) Nausea & vomiting: Status: Acute Assessment and plan: Ongoing as needed ondansetron (5) Hyperlactatemia: Status: Acute Assessment and plan: Lactate - 2.2 Repeat 1.8 (6) On deep vein thrombosis (DVT) prophylaxis: Status: Acute Assessment and plan: LMWH on hold now SCD's Discussed with Dr. Charles Subjective Subjective Patient reports: no new complaints, feels better, tolerating liquids well, tolerating a regular diet, voiding w/o difficulty and other (NPO as per Sx for OR today for cholescystectomy ); denies no bowel movement, diarrhea, vomiting, shortness of breath or fever Exam Narrative Exam Narrative: Alert and oriented x 4, no focal neurological deficit, unlabored breathing, S1- S2 regular, no murmur, PPP x 4, abdomen is nondistended soft non-tender - guarding , negative Blair's sign, no CVA tenderness moves all 4 extremities Objective Last Vital Signs Temp 36.4 C L 09/10/25 07:37 Pulse 89 09/10/25 07:37 Resp 17 09/10/25 07:37 BP 110/76 09/10/25 07:37 Pulse Ox 97 09/10/25 07:37 Laboratory Results - last 24 hr 09/09/25 09/09/25 09/09/25 11:10 12:13 18:02 WBC 11.79 H RBC 5.21 Hgb 16.1 Hct 45.9 MCV 88 MCH 30.9 MCHC 35.1 RDW 12.2 Plt Count 257 MPV 8.7 Immature Gran % 0.3 Neutrophils % 90.8 Lymphocytes % 3.5 Monocytes % 5.0 Eosinophils % 0.1 Basophils % 0.3 Nucleated RBC % 0.0 Absolute Neutrophils 10.71 H Absolute Lymphocytes 0.41 L Absolute Monocytes 0.59 Absolute Eosinophils 0.01 Absolute Basophils 0.04 VBG Lactate 2.2 H* 1.8 Sodium 139 Potassium 4.0 Chloride 99 Carbon Dioxide 29.1 Anion Gap 10.9 BUN 17 Creatinine 1.2 Est GFR (CKD-EPI 2020) 70.53 Glucose 150 H Calcium 8.8 Magnesium 2.1 Total Bilirubin 0.7 Conjugated Bilirubin AST 16 ALT 27 Alkaline Phosphatase 124 H Troponin I 9 7 Total Protein 8.0 Albumin 4.0 Lipase 192 H TSH 1.69 09/10/25 06:24 WBC 6.53 RBC 4.33 L Hgb 13.3 L D Hct 38.9 L MCV 90 MCH 30.7 MCHC 34.2 RDW 12.4 Plt Count 223 MPV 8.7 Immature Gran % 0.5 Neutrophils % 69.1 Lymphocytes % 15.2 Monocytes % 11.5 Eosinophils % 3.2 Basophils % 0.5 Nucleated RBC % 0.0 Absolute Neutrophils 4.52 Absolute Lymphocytes 0.99 L Absolute Monocytes 0.75 Absolute Eosinophils 0.21 Absolute Basophils 0.03 VBG Lactate Sodium 142 Potassium 4.0 Chloride 106 Carbon Dioxide 29.3 Anion Gap 6.7 BUN 14 Creatinine 1.0 Est GFR (CKD-EPI 2020) 87.78 Glucose 98 Calcium 8.4 L Magnesium 2.1 Total Bilirubin 0.7 Conjugated Bilirubin 0.2 AST 15 ALT 19 Alkaline Phosphatase 97 Troponin I Total Protein 6.3 L Albumin 3.3 L Lipase 62 TSH Time Spent with Patient Time Spent with Patient: >50 minutes Time was spent: preparing to see the patient(eg.review tests), obtaining and/or reviewing separately otained hiistory, ordering medications,tests, procedures, referring, communicating with other health health care sanitary technician, indepentently interpreting results, counseling the patient, care coordination and other
[2025-09-10] MEDS: Enoxaparin 40 MG/0.4 ML SYR SC (09:31)
[2025-09-10 09:59] LABS: C-Reactive Protein < 0.50 mg/dL (<or=0.5)
[2025-09-10] MEDS: cefTRIAXone 2 GM/50 ML BAG IVPB (10:27)
--- NOTE | 2025-09-10 13:06 | PHA.REVIEW2 ---
Pharmacy Admission Review Admission Clinical Review Admission Pharmacy Review: Hyperlactatemia (Acute) On deep vein thrombosis (DVT) prophylaxis (Acute) Nausea & vomiting (Acute) Pain management (Acute) Cholelithiasis (Acute) Gallstone pancreatitis (Acute) Gallstone pancreatitis (Acute) Barbiturates Allergy (Unknown, Verified 09/09/25 10:49) Other (See Comment) pseudoephedrine Allergy (Unknown, Verified 09/09/25 10:49) Other (See Comment) actified Allergy (Uncoded 09/09/25 10:49) Unknown Cat gut sutures Allergy (Uncoded 09/09/25 10:49) Unknown sedatives Allergy (Uncoded 09/09/25 10:49) Unknown Resuscitation Status Full Code Height 5 ft 4 in Weight 59.965 kg Pharmacy Admission Review Renal Dosing Renal Dosing: BUN 14 mg/dL (7-18) 09/10/25 06:24 Creatinine 1.0 mg/dL (0.70-1.30) 09/10/25 06:24 Medications needing adjustments: Reviewed (CrCl 69.13 mL/min) List of meds needing interventions: Current medications are okay Anticoagulation Anticoagulation: Hgb 13.3 g/dL (13.5-17.5) L D 09/10/25 06:24 Hct 38.9 % (40.0-50.0) L 09/10/25 06:24 Plt Count 223 10^3/uL (130-400) 09/10/25 06:24 Creatinine 1.0 mg/dL (0.70-1.30) 09/10/25 06:24 DVT Prophylaxis: Reviewed (Hgb decreased from 16.1) Medications: Enoxaparin (40mg daily - on hold for procedure today) Relevant Labs Relevant Labs: Sodium 142 mmol/L (136-145) 09/10/25 06:24 Potassium 4.0 mmol/L (3.5-5.1) 09/10/25 06:24 Chloride 106 mmol/L (98-107) 09/10/25 06:24 Magnesium 2.1 mg/dL (1.8-2.4) 09/10/25 06:24 C-Reactive Protein < 0.50 mg/dL (<or=0.5) 09/10/25 06:24 Electrolytes, C-Reactive P, ESR: Reviewed Cardiac Review Cardiac Review: Troponin I 7 ng/L (<or=76) 09/09/25 12:13 BP, HR, EF%: Reviewed (BP and HR WNL) QTc Review QTc: Reviewed (420 from 09/09/25) IV to PO Switch IV Medications: Reviewed (NPO - procedure today) Home Meds Home Med List reviewed: Reviewed Relevent Home Meds Not ordered & why?: No known home meds Current Meds Current Medication Order Review: Intervened Comments: Added IV access order set Pharmacy Antibiotic Review Relevant Labs: Relevant Labs 09/10/25 06:24 C-Reactive Protein < 0.50 WBC 6.53 10^3/uL (4.4-10.8) 09/10/25 06:24 Temperature 36.4 C Temperature 36.8 C Pharmacy Antibiotic Activity: C/S review and Reviewed, no change Comments: Patient is on ceftriaxone and metronidazole, day 1, for pancreatitis. WBC decreased from 11.79 and blood cultures are pending.
[2025-09-10] MEDS: metroNIDAZOLE 500 MG/100 ML BAG 100 MG IVPB (13:21)
--- NOTE | 2025-09-10 17:40 | IN_ITS ---
PT Notes Visit Reasons: Pancreatitis Physical Therapy Inpatient Initial Evaluation Date: 09/10/2025 Referring Doctor: Rozina Ma NP PT Orders: PT CONSULT: Eval for assistive device; safety consult for discharge Precautions: Fall risk, standard Patient Profile/Admitting Diagnosis: Shiva is a 55-year-old male with cerebral palsy presenting to the ED with sudden vomiting. CT of the abdomen and pelvis showed a moderately distended gallbladder. No calcified gallstones but there is a single tiny gas bubble in the gallbladder lumen which may be associated with a subtle gallstone; circumferential thickening of the lower esophagus concerning for esophagitis, Consult with Dr. Mariee recommending surgical intervention. MD awaiting agreement from HCP for surgical intervention. Patient scheduled to be n.p.o. overnight with anticipated surgical intervention on 09/11/2025. PMHX: Hyperlactatemia (Acute) On deep vein thrombosis (DVT) prophylaxis (Acute) Nausea & vomiting (Acute) Pain management (Acute) Cholelithiasis (Acute) Gallstone pancreatitis (Acute) Gallstone pancreatitis (Acute) Left inguinal hernia (Acute) Risk for falls (Acute) Urinary incontinence (Acute) Raynaud's disease (Acute) Insomnia (Acute) Difficulty swallowing (Acute) Developmental delay, moderate (Acute) Chronic constipation (Acute) Cerebral palsy (Acute) Medical History (Updated 09/09/25 @ 15:29 by Rozina Ma APRN) Encounter for colorectal cancer screening using Cologuard test 09/26/2024 Cologuard, Negative, repeat 3 years Backache Social History/Home Situation: Patient resides in [facility] with caregivers. His sister Kimberlyn is his guardian. He ambulates with 1 assist and has assistance for all ADLs and meals are provided. Equipment Owned/DME: None Subjective: Patient stated no when asked if he had pain and wants to walk Objective: [] General Observation: male presented seated at EOB with his shoes on wanting to walk Mental Status: Alert, happy, cooperative, impulsive with spontaneous movements. Dysarthric impaired insight into unsafe situations. Pain: Denied ROM: [] BUE: shoulders functional flexion and abduction for ADL care, elbow and hand functional BLE: WFL except pes valgus, impaired hamstring length, impaired IR of hips Strength: Pt unable to follow instructeions for MMT BUE: functionallyable to raise arms above head, able to feed self with strong grasp BLE grossly >/= to 3/5 Sensation: intact Bed Mobility/Transfers: [] Supine to sit Independent Sit to stand contact-guard assist Stand to sit standby assist Bed to chair contact-guard assist without device Gait: Ambulated hand-held assist 400 feet with contact-guard assist of the second person. Patient demonstrates pes valgus bilaterally, reduced step length, reduced foot clearance Stairs: 3 4 steps and 2 6 steps with rails CGA with continuous cues for safety Balance: [] Static Sitting: Normal Dynamic Sitting: good- Static Standing:Good Dynamic Standing: Fair Special Tests: [] Mobility Limitations Standardized Measure [] [facility] AM-PAC 6 clicks Basic Mobility Inpatient Short Form: [] Raw Score: 19 CMS Score: 41.77% deficit Informed Consent/Education: Patient instructed in purpose of PT consult. Assessment: Shiva presents with baseline level of function . He is awaiting surgical intervention for gall stones at this time. Nursing staff is able to provide [employer] for ambulation and transfers when his paid caregivers are not present. Patient presents with clinical signs and symptoms consistent with current/admitting diagnoses that have resulted to mobility limitations, gait instability, generalized weakness, and impairment of motor control as demonstrated by the following impairment level findings: 1. Decreased strength / motor control major muscle groups 2. Impaired standing balance 3. Limitation of joint range of motion in B ankles Impairments are contributing to the following functional limitations: 1. Inability to safely ambulate without assistance 2. Increase completion time for mobility ADL performance 3. Increased fall risk Despite above stated deficits pt is functioning at his baseline level of mobility requiring [employer] of 1 for all ambulation. His caregivers are able to provide the [employer].Therefore no further skilled PT is indicated as an inpatient. He may benefit from outpatient PT for balance vs HHPT to assess his environment as caregivers have reported falls within the home. Patient is assessed as a moderate complexity based on the following: History: 55-year-old male with impairment level findings, functional limitations, and past medical history as indicated above Examination: Demonstrable impairment in strength, balance, and mobility level with underlying impairments and functional limitations as documented above Presentation: stable Decision Making: moderate Goals: N/A. PT evaluation and 1-2 treatment session only for functional mobility training using recommended AD and for HEP instruction. Plan of Care/Treatment Plan: N/A. PT evaluation and 1-2 treatment session only for functional mobility training using recommended AD and for HEP instruction. DISCHARGE RECOMMENDATIONS: Home with HHPT versus outpatient PT TREATMENT CODE/TIME: [id number]/ 5:18pm-5:40pm Thank you for the opportunity to participate in the care of this patient. Cara García, PT [facility]
[2025-09-10] MEDS: Acetaminophen 500 MG TAB 1000 MG PO ×2 (18:13→23:57)
[2025-09-10 19:25] VITALS: BP 114/64; PULSE 104; RESP 20; TEMP 36.7; O2SAT 98
[2025-09-10] MEDS: Ketorolac 15 MG/ML VIAL IVP (20:54)
[2025-09-11] MEDS: Acetaminophen 500 MG TAB 1000 MG PO (05:25)
[2025-09-11 06:53] LABS: Abs Immature Grans 0.03 10^3/uL (0.0-0.06); HCT 36.5 % (40.0-50.0); HGB 12.4 g/dL (13.5-17.5); Immature Grans % 0.7 %; MCH 30.5 pg (27.0-33.0); MCHC 34.0 % (32.0-36.0); MCV 90 fL (80-95); MPV 8.8 fL (8.0-11.0); Platelet Count 195 10^3/uL (130-400); RBC 4.07 10^6/uL (4.36-5.78); RDW 12.3 % (11.8-14.1); RDW-SD 40.1 fL; WBC 4.60 10^3/uL (4.4-10.8)
[2025-09-11 07:34] LABS: ALT 19 U/L (10-49); AST 21 U/L (<34); Albumin 3.6 g/dL (3.4-5.0); Alkaline Phosphatase 89 U/L (46-116); Anion Gap 8.1 mmol/L (3-11); BUN 11 mg/dL (9-23); Bilirubin, Total 0.70 mg/dL (0.2-1.2); CO2 26.9 mmol/L (20.0-31.0); Calcium 8.5 mg/dL (8.3-10.6); Chloride 107 mmol/L (98-107); Glucose 92 mg/dL (74-106); Potassium 4.1 mmol/L (3.5-5.1); Sodium 142 mmol/L (136-145); Total Protein 5.9 g/dL (5.7-8.2)
[2025-09-11 08:22] VITALS: BP 153/73; PULSE 109; RESP 20; TEMP 36.7; O2SAT 97
[2025-09-11] MEDS: Lactated Ringers 1,000 ML 75 ML IV (08:32)
[2025-09-11] MEDS: Ketorolac 15 MG/ML VIAL IVP (08:32)
[2025-09-11] MEDS: Normal Saline Flush 10 ML SYR IVP (09:56)
[2025-09-11] MEDS: Pantoprazole 40 MG VIAL IVP (09:56)
--- NOTE | 2025-09-11 12:44 | PGE_ITS ---
Date of Service Date of service: 09/11/25 Time of Service: 12:44 Assessment and Plan Assessment and plan (1) Gallstone pancreatitis: Status: Acute Assessment and plan: Cholecystectomy recommended to prevent future recurrences of pancreatitis related to the gallstones. No evidence of residual pancreatitis or choledocholithiasis. Pt is tolerated full liquids and may advance as tolerated to a low fat diet. He may discharge home since he is eating again and return to office to review and schedule cholecystectomy. Sister/guardian kimberlyn says she can be present if notified in advance of the appointment. I told her if she is not able to make it to the appointment in person, we can easily reach out to her by phone after the appointment to review plan and get consent. She is agreeable to this. His caregivers will come with him to the appointment so they can be aware of the plan of care, risks, benefits, alternatives and expectations of laparoscopic cholecystectomy as well. (2) Symptomatic cholelithiasis: Status: Acute (3) Cerebral palsy: Status: Acute (4) Developmental delay, moderate: Status: Acute Subjective Subjective Interval history since last seen: no issues overnight. Pts diet was advanced and he has tolerated it so far. No nausea or emesis, and no evidence of discomfort on evaluation. Sister/guardian Kimberlyn called today and plan of care discussed w her by hospitalist team and then by me. Since he has eaten we will not hold him here, will discharge him and have him return for cholecystectomy. She is agreeable. Exam Narrative Exam Narrative: awake, conversive, NAD eomi, MMM normal resp effort abdomen is nondistended. Objective Last Vital Signs Temp 98.1 F 09/11/25 08:22 Pulse 109 H 09/11/25 08:22 Resp 20 09/11/25 08:22 BP 153/73 H 09/11/25 08:22 Pulse Ox 97 09/11/25 08:22 Laboratory Results - last 24 hr 09/11/25 06:23 WBC 4.60 RBC 4.07 L Hgb 12.4 L Hct 36.5 L MCV 90 MCH 30.5 MCHC 34.0 RDW 12.3 Plt Count 195 MPV 8.8 Immature Gran % 0.7 Neutrophils % 64.7 Lymphocytes % 18.9 Monocytes % 9.6 Eosinophils % 5.2 Basophils % 0.9 Nucleated RBC % 0.0 Absolute Neutrophils 2.98 Absolute Lymphocytes 0.87 L Absolute Monocytes 0.44 Absolute Eosinophils 0.24 Absolute Basophils 0.04 Sodium 142 Potassium 4.1 Chloride 107 Carbon Dioxide 26.9 Anion Gap 8.1 BUN 11 Creatinine 1.0 Est GFR (CKD-EPI 2020) 79.61 Glucose 92 Calcium 8.5 Total Bilirubin 0.70 AST 21 ALT 19 Alkaline Phosphatase 89 Total Protein 5.9 Albumin 3.6 Time Spent with Patient Time Spent with Patient: <25 minutes Time was spent: preparing to see the patient(eg.review tests), referring, communicating with other health animal daycare provider and care coordination
--- NOTE | 2025-09-11 13:43 | W.PM.DS.N ---
Date of service: 09/11/25 Time of Service: 13:43 DS: Diagnosis Discharge Diagnosis (1) Gallstone pancreatitis: Status: Acute (2) Symptomatic cholelithiasis: Status: Acute (3) Cerebral palsy: Status: Acute (4) Developmental delay, moderate: Status: Acute Discharge Plan Disposition Patient Disposition: Home W/Home Health Services Condition: Improving Discharge Details Reason For Visit: Pancreatitis Admit Date/Time: 09/09/25 14:42 Admit Provider: Christopher Charles Attending Provider: Christopher Charles Primary Care Provider: Buck [facility] Hospital Course Hospital Course: This 55 yo male with PMHx Severe cognitive delay, Raynaud's, constipation, insomnia presented to the ED for evaluation of sudden vomiting. Work-up in the Ed was positive for moderately distended gallbladder as per CT of the abdomen and pelvis; imaging concernin for subtle gallstone and lower esophagitis. The abdominal ultrasound confimed cholelithiasis w multiple gallstones and without CBD dilation. Lab result showed minimal elevation in ALK and lipase at 192, lactate 2.2, Cr 1.2 without other actionable findings. Surgical consultation with recommendation for admission w/o the need for emergent surgery. The patient was admitted to the hospitalist service observation for fluid resuscitation and symptom management. Full CODE STATUS confirmed by calling guardian/sister : Kimberlyn Mariee at [phone]- would like to be call at this number when needed. The patient's symptoms improved and laboratory studies returned to baseline. Surgeon Dr. Mariee attempted to reach the guardian for the possibility of a laparoscopic cholecystectomy but the communication attempt was not successful and the patient resumed his low-fat diet which was well tolerated. The patient has clinically improved, and is hemodynamically stable and will be discharged home with a follow- up with PCP within 7 to 10 days of discharge. Surgeon Aleksandra Hallman spoke to the guardian this AM. This provider also communicated with Mrs Yovanny Mariee, the patient guardian, and discussed outpatient surgery referral for recommended outpatient laparoscopic cholecystectomy, also aware that consent will need to be given to the surgeon. The guardian is also agreeable to home health physical therapy upon discharge today. Referral to [facility] surgical completed. Discussed with Dr. Charles Recommendations for Follow Up Recommended tests to be ordered by follow up provider: Follow-up on surgical referral Home Meds and New Rx's Prescriptions: No Action No Known Home Meds Discharge Instructions Stand Alone Forms: Portal Information Referrals: Isabel Lake MD [ [facility] STAFF PHYSICIAN, Surgery] Referral Note: Referral 1-2 weeks for Brandi Multani PA [ NON-[facility] STAFF PHYSICIAN, Medicine] Referral Note: Follow- up within 7 to 10 days of discharge Activity:: Activity as Tolerated Equipment/Supplies:: As per [employer] Diet:: Low- fat pureed DS: Summary Time Spent with Patient providing and/or coordinating discharge services: Greater than 30 minutes Status at Discharge Functional status at discharge: independent ambulation (with hand roller holding his hand ) Overall status at discharge: patient is back to baseline Mental Status: other (At baseline for the patient ) Speech and Movement: speech and movement normal (At baseline for the patient ) Mood: other (At baseline for the patient ) Affect: animated and other (At baseline for the patient ) Quality:SDOH Health Related Social Needs: Health related social needs daily activities Health related social needs details Pt has caregivers: Clem Angel, and Natalie Hickman. Kimberlyn (sister) is guardian. Health related social needs details: Pt has caregivers: Clem Angel, and Natalie Hickman. Kimberlyn (sister) is guardian. Exam Narrative Exam Narrative: Alert and oriented to self and caretakers, non-icteric non-injected sclera, moist oral cavity, neurologically at baseline , unlabored breathing, S1-S2 regular, abdomen is non-distended soft non-tender - no guarding , negative Blair's sign, moves all 4 extremities , ambulates in hallway Psych Mental Status: other (At baseline for the patient ) Speech and Movement: speech and movement normal (At baseline for the patient ) Mood: other (At baseline for the patient ) Affect: animated and other (At baseline for the patient ) DS: Data Vitals/I&O Vitals and I&O: Vital Signs Temperature 36.7 C 09/11/25 08:22 Temperature Source Temporal Artery Scan 09/11/25 08:22 Pulse 109 H 09/11/25 08:22 Pulse Rhythm Regular 09/09/25 16:16 Respiratory Rate 20 09/11/25 08:22 Respiratory Effort Normal, Non-Labored 09/09/25 16:16 Respiratory Depth Normal 09/09/25 16:16 Respiratory Pattern Normal 09/09/25 16:16 Blood Pressure 153/73 H 09/11/25 08:22 Blood Pressure Mean 99 09/11/25 08:22 Blood Pressure Position Sitting 09/09/25 10:39 Pulse Oximetry 97 09/11/25 08:22 Oxygen Delivery Method Room Air 09/11/25 08:22 Oxygen Flow Rate 0 09/11/25 08:22 Pain Level 5 09/11/25 08:32 Comment see admit part 2 for initial VS. 09/09/25 16:16 Intake & Output 09/10/25 09/11/25 09/11/25 23:59 11:59 23:59 Intake Total 940 / 2705 Balance 940 / 2705 Intake: IV 460 / 2225 Oral 480 / 480 Other: Urine Color Yellow Comment zenon pt is dry at this time Stool Size Moderate Stool Characteristics Soft Data Completed and Pending Pending Labs at Discharge: 09/09/25 09/09/25 09/09/25 11:10 12:13 18:02 WBC 11.79 H RBC 5.21 Hgb 16.1 Hct 45.9 MCV 88 MCH 30.9 MCHC 35.1 RDW 12.2 Plt Count 257 MPV 8.7 Immature Gran % 0.3 Neutrophils % 90.8 Lymphocytes % 3.5 Monocytes % 5.0 Eosinophils % 0.1 Basophils % 0.3 Nucleated RBC % 0.0 Absolute Neutrophils 10.71 H Absolute Lymphocytes 0.41 L Absolute Monocytes 0.59 Absolute Eosinophils 0.01 Absolute Basophils 0.04 VBG Lactate 2.2 H* 1.8 Sodium 139 Potassium 4.0 Chloride 99 Carbon Dioxide 29.1 Anion Gap 10.9 BUN 17 Creatinine 1.2 Est GFR (CKD-EPI 2020) 70.53 Glucose 150 H Calcium 8.8 Magnesium 2.1 Total Bilirubin 0.7 Conjugated Bilirubin AST 16 ALT 27 Alkaline Phosphatase 124 H Troponin I 9 7 C-Reactive Protein Total Protein 8.0 Albumin 4.0 Lipase 192 H TSH 1.69 09/10/25 09/11/25 06:24 06:23 WBC 6.53 4.60 RBC 4.33 L 4.07 L Hgb 13.3 L D 12.4 L Hct 38.9 L 36.5 L MCV 90 90 MCH 30.7 30.5 MCHC 34.2 34.0 RDW 12.4 12.3 Plt Count 223 195 MPV 8.7 8.8 Immature Gran % 0.5 0.7 Neutrophils % 69.1 64.7 Lymphocytes % 15.2 18.9 Monocytes % 11.5 9.6 Eosinophils % 3.2 5.2 Basophils % 0.5 0.9 Nucleated RBC % 0.0 0.0 Absolute Neutrophils 4.52 2.98 Absolute Lymphocytes 0.99 L 0.87 L Absolute Monocytes 0.75 0.44 Absolute Eosinophils 0.21 0.24 Absolute Basophils 0.03 0.04 VBG Lactate Sodium 142 142 Potassium 4.0 4.1 Chloride 106 107 Carbon Dioxide 29.3 26.9 Anion Gap 6.7 8.1 BUN 14 11 Creatinine 1.0 1.0 Est GFR (CKD-EPI 2020) 87.78 79.61 Glucose 98 92 Calcium 8.4 L 8.5 Magnesium 2.1 Total Bilirubin 0.7 0.70 Conjugated Bilirubin 0.2 AST 15 21 ALT 19 19 Alkaline Phosphatase 97 89 Troponin I C-Reactive Protein < 0.50 Total Protein 6.3 L 5.9 Albumin 3.3 L 3.6 Lipase 62 TSH Preliminary micro results at discharge 09/09/25 11:10 Blood Blood Culture - Preliminary NO GROWTH 48 HOURS 09/09/25 11:49 Blood Blood Culture - Preliminary NO GROWTH 24 HOURS PFSH All Active Problems (Updated 09/11/25 @ 12:48 by Isabel Lake MD) Symptomatic cholelithiasis (Acute) Hyperlactatemia (Acute) On deep vein thrombosis (DVT) prophylaxis (Acute) Nausea & vomiting (Acute) Pain management (Acute) Cholelithiasis (Acute) Gallstone pancreatitis (Acute) Gallstone pancreatitis (Acute) Left inguinal hernia (Acute) Risk for falls (Acute) Urinary incontinence (Acute) Raynaud's disease (Acute) Insomnia (Acute) Difficulty swallowing (Acute) Developmental delay, moderate (Acute) Chronic constipation (Acute) Cerebral palsy (Acute) Medical History (Updated 09/11/25 @ 12:48 by Isabel Lake MD) Encounter for colorectal cancer screening using Cologuard test 09/26/2024 Cologuard, Negative, repeat 3 years Backache Social History Smoking/Tobacco Use Status: Never Smoking risk assessment performed?: Yes Alcohol Intake: never Substance use type: does not use Housing: house Time Spent with Patient Time Spent with Patient: >85 minutes Time was spent: preparing to see the patient(eg.review tests), obtaining and/or reviewing separately otained hiistory, ordering medications,tests, procedures, referring, communicating with other health certified social workers in health care, indepentently interpreting results, counseling the patient, care coordination and other
--- NOTE | 2025-09-11 13:50 | PDOC.HHF2F_ITS ---
Date of service: 09/11/25 Time of Service: 13:50 Home Health Referral Home Health Orders Clinical synopsis of why skilled professionals are needed: This 55 yo male with PMHx Severe cognitive delay, Raynaud's, constipation, insomnia presented to the ED for evaluation of sudden vomiting. Work-up in the Ed was positive for moderately distended gallbladder as per CT of the abdomen and pelvis; imaging concernin for subtle gallstone and lower esophagitis. The abdominal ultrasound confirmed cholelithiasis w multiple gallstones and without CBD dilation. Lab result showed minimal elevation in ALK and lipase at 192, lactate 2.2, Cr 1.2 without other actionable findings. Surgical consultation with recommendation for admission w/o the need for emergent surgery. The patient was admitted to the hospitalist service observation for fluid resuscitation and symptom management. Full CODE STATUS confirmed by calling guardian/sister : Kimberlyn Mariee at [phone]- would like to be call at this number when needed. The patient's symptoms improved and laboratory studies returned to baseline. Surgeon Dr. Mariee attempted to reach the guardian for the possibility of a laparoscopic cholecystectomy but the communication attempt was not successful and the patient resumed his low-fat diet which was well tolerated. The patient has clinically improved, and is hemodynamically stable and will be discharged home with a follow- up with PCP within 7 to 10 days of discharge. Surgeon Aleksandra Hallman spoke to the guardian this AM. This provider also communicated with Mrs Yovanny Mariee, the patient guardian, and discussed outpatient surgery referral for recommended outpatient laparoscopic cholecystectomy, also aware that consent will need to be given to the surgeon. The guardian is also agreeable to home health physical therapy upon discharge todayas per recommendation from inpatient physical therapist. Referral to [facility] surgical completed. Discussed with Dr. Charles Physical Therapist: Check all that apply Increase strength & endurance for safe mobility at home: Ordered To design/establish home maintenance program: Ordered Fall reduction therapy program for patient with history of frequent falls: Ordered Encounter Date and Reason: I certify that a FTF encounter for this patient was performed on September 11, 2025 and that such encounter was related to the primary reason the patient requires home health services. The encounter was conducted in the following manner: * By me as the certifying physician, GIFT BASKET PACKER, PA or * By an inpatient physician, GIFT BASKET PACKER or PA during an inpatient stay who communicated findings to me, Certification And Authentication I certify that I composed the above information based on my clinical judgment relating to this patient's medical condition and, if applicable, clinical findings communicated to me by the NPP or inpatient physician who performed the FTF encounter. Name of Provider that will be monitoring home health services: Brandi Hlobrook
--- NOTE | 2025-09-11 14:39 | PDOC.CMDIS ---
Date of service: 09/11/25 Time of Service: 14:40 LACE Index Scoring Tool Questions: Length of Stay (in days): 2 Was the patient admitted via the E.D.?: Yes E.D. Visits: 1 Answers: Total Score: 6 Risk of Readmission: Low Risk Care Management Discharge Plan Reason for Hospitalization: gallstone pancreatitis Discharge Plan: Shiva was discharged home today with new services of [facility]. He will f/u with surgery for an outpatient cholecystectomy. His guardians were present today and were given clear instructions on contacting the surgical office and the consents that the guardian must sign. Shiva will also f/u with his PCP. He will continue per his plan of care, and was transported home in a private vehicle with his caregivers. Patient/Family Education Needs: Review of discharge instructions, diet, activity, limitations, and discuss Ask me 3. Services Needed at Discharge: Home Health Care Services and Physical Therapy SDOH Health Related Social Needs: Health related social needs daily activities Health related social needs details Pt has caregivers: Clem Angel, and Natalie Hickman. Kimberlyn (sister) is guardian. Health related social needs details: Pt has caregivers: Clem Angel and Natalie Hickman. Kimberlyn (sister) is guardian.
== END 2025-09-11 14:17 | disposition home health service (06) ==
LOC: ER 15:03 → MS 16:08
PROVIDERS: Nurse Practitioner Acute Care; Surgery; Admitting Provider Family Medicine; Emergency Provider Physician Assistant; PCP Internal Medicine; Responsible Provider Family Medicine; Visit Provider Family Medicine
DX: K85.10 Biliary acute pancreatitis without necrosis or infection (principal); K80.20 Calculus of gallbladder without cholecystitis without obstruction; E87.20 Acidosis, unspecified; R11.2 Nausea with vomiting, unspecified; G80.9 Cerebral palsy, unspecified; Z79.899 Other long term (current) drug therapy; I73.00 Raynaud's syndrome without gangrene; G47.00 Insomnia, unspecified; R13.10 Dysphagia, unspecified; K59.09 Other constipation; R32 Unspecified urinary incontinence; K40.90 Unilateral inguinal hernia, without obstruction or gangrene, not specified as recurrent; F72 Severe intellectual disabilities; Z73.89 Other problems related to life management difficulty
CPT/HCPCS: 00123; 36415; 80048; 80053; 80076; 83690; 87040; 93005; 96365; 96366; 97162; 99222; 99231; 99285; J1650; 71045; 74177; 76705; 83605; 83735; 84443; 84484; 85025; 86140; 93010; 99223; 99233; 99239; G0378; J0131; J0696; J1836; J1885; J2470; J2543; J3490

== ENCOUNTER → 2025-09-18 14:26 | Outpatient (BNVA) | payer MEDICARE, MEDICAID, SELFPAY | PROVIDERS: PCP Internal Medicine; Referring Provider Internal Medicine; Visit Provider Surgery | DX: K85.10 Biliary acute pancreatitis without necrosis or infection (principal); K80.20 Calculus of gallbladder without cholecystitis without obstruction; G80.9 Cerebral palsy, unspecified; K59.09 Other constipation; R62.50 Unspecified lack of expected normal physiological development in childhood | CPT/HCPCS: 99215 ==

== ENCOUNTER 2025-09-23 06:57 | Day surgery (SDC) | payer MEDICARE, MEDICAID, SELFPAY ==
[2025-09-23] VITALS (12 sets, daily range): BP systolic 106–121; BP diastolic 57–84; PULSE 64–90; RESP 18–30; TEMP 35.9–36.7; O2SAT 98–100; BMI 21.0
[2025-09-23] MEDS: Lactated Ringers 1,000 ML 80 ML IV (07:50)
--- NOTE | 2025-09-23 07:55 | W.PM.DSUDISC ---
Date of service: 09/23/25 Discharge Plan Disposition Patient Disposition: Home Condition: Stable Discharge Details Attending Provider: Isabel Lake Primary Care Provider: Buck Clark Home Meds and New Rx's Prescriptions: New pantoprazole 40 mg tablet,delayed release (DR/EC) 40 mg PO DAILY Qty: 30 0RF ketorolac 10 mg tablet 10 mg PO Q8H PRN3 Days Qty: 12 0RF Discharge Instructions Additional Instructions: Additional Instructions: Shower in 48 hours. Wash gently over steri-strips with soapy hands, rinse, pat dry. Don't peel strips or submerge them under water. The longer they stay on, the nicer the scars will heal. Ok to walk, climb stairs, and resume normal activities of daily living. Do not lift/push/pull more than 20lb for 4 weeks. Diet as tolerated, allow your body to naturally make adjustments in the bile flow after surgery. Eat your normal diet. Loose stools may occur. We will discuss them at follow up if still present in 2 weeks. Call or return for fever or incisional problems. Activity:: as above Shower/Bathe:: 48 hours Diet:: As Tolerated Stand Alone Forms: Portal Information Discharge Orders Discharge Orders: Discharge Order (Routine); Ordered 09/23/25 Ordered By: Isabel Lake DS: Diagnosis Discharge Diagnosis (1) Gallstone pancreatitis:
--- NOTE | 2025-09-23 08:12 | ANES.PREOP_ITS ---
General Info Date of Service Date Performed: 09/23/25 Height: 5 ft 7 in Weight: 61 kg Body Mass Index (BMI): 21.0 Surgical Procedure: Operation Date: 09/23/25 08:25 Proposed Procedure Side Surgeon p Cholecystectomy Laparoscopic Isabel Lake MD Actual Procedure Side Surgeon p Cholecystectomy Laparoscopic Not Applicable Isabel Lake MD Meds Allergies and Home Medications Allergies Allergy/AdvReac Type Severity Reaction Status Date / Time Barbiturates Allergy Unknown Other (See Verified 09/23/25 07:26 Comment) pseudoephedrine Allergy Unknown Other (See Verified 09/23/25 07:26 Comment) actified Allergy Unknown Uncoded 09/23/25 07:26 Cat gut sutures Allergy Unknown Uncoded 09/23/25 07:26 sedatives Allergy Unknown Uncoded 09/23/25 07:26 Home Medication ?Medication ?Instructions ?Recorded hydrocodone 5 mg-acetaminophen 325 1 tab PO Q6H PRN #1 0 tabs 09/23/25 mg tablet Current Visit Medications: Current Medications Generic Name Dose Route Start Last Admin Trade Name Aidanq PRN Reason Stop Dose Admin Ringer's Solution 1,000 mls @ 80 mls/hr 09/23/25 06:00 09/23/25 07:50 IV 10/20/25 23:59 80 mls/hr INFUSION CRISTINA Administration IV Miscellaneous Supplies 1 each 09/23/25 06:00 Iv Access IV 10/20/25 23:59 DIRECTED CRISTINA Sodium Chloride 0 ml 09/23/25 06:00 Normal Saline Flush 10 Ml Syr IV 10/20/25 23:59 PRN PRN Sodium Chloride 0 ml 09/23/25 06:00 Normal Saline 10 Ml Vial IJ 10/20/25 23:59 DIRECTED PRN Sterile Water 0 ml 09/23/25 06:00 Water,Injection,Sterile 10 Ml Vial IJ 10/20/25 23:59 DIRECTED PRN PFSH Active Problems Active Problems: Problem Status Onset Code Left inguinal hernia Acute K40.90 Urinary incontinence Acute R32 Risk for falls Acute Z91.81 Raynaud's disease Acute I73.00 Insomnia Acute G47.00 Difficulty swallowing Acute R13.10 Developmental delay, moderate Acute R62.50 Chronic constipation Acute K59.09 Cerebral palsy Acute G80.9 Medical History Medical History Fecal incontinence Symptomatic cholelithiasis Hyperlactatemia Cholelithiasis Gallstone pancreatitis Encounter for colorectal cancer screening using Cologuard test 09/26/2024 Cologuard, Negative, repeat 3 years Backache Medical History Comments:: Pt. unable to answer questions Pt. takes purred foods Tobacco Smoking/Tobacco Use Status: Never Passive smoking exposure: No Alcohol Alcohol Intake: never Substance Use Substance use: Never Substance use type: does not use Vital Signs and Lab Results Vital Signs Most Recent Vital Signs in EMR: Most Recent Vital Signs Temp Pulse Resp BP Pulse Ox 36.2 C L 73 18 109/78 100 09/23/25 07:27 09/23/25 07:27 09/23/25 07:27 09/23/25 07:27 09/23/25 07:27 Lab Results Complete Blood Count: WBC, (4.4-10.8) 4.60 10^3/uL 09/11/25, 06:23 RBC, (4.36-5.78) 4.07 10^6/uL L 09/11/25, 06:23 Hgb, (13.5-17.5) 12.4 g/dL L 09/11/25, 06:23 Hct, (40.0-50.0) 36.5 % L 09/11/25, 06:23 Plt Count, (130-400) 195 10^3/uL 09/11/25, 06:23 VBG Lactate, (<or=2.0) 1.8 mmol/L 09/09/25, 18:02 Complete Metabolic Panel: Sodium, (136-145) 142 mmol/L 09/11/25, 06:23 Potassium, (3.5-5.1) 4.1 mmol/L 09/11/25, 06:23 Chloride, (98-107) 107 mmol/L 09/11/25, 06:23 Carbon Dioxide, (20.0-31.0) 26.9 mmol/L 09/11/25, 06 :23 BUN, (9-23) 11 mg/dL 09/11/25, 06:23 Creatinine, (0.73-1.18) 1.0 mg/dL 09/11/25, 06:23 Est GFR (CKD-EPI 2020), (mL/min/1.73m2) 79.61 09/11/25, 06:23 Magnesium, (1.8-2.4) 2.1 mg/dL 09/10/25, 06:24 Calcium, (8.3-10.6) 8.5 mg/dL 09/11/25, 06:23 Albumin, (3.4-5.0) 3.6 g/dL 09/11/25, 06:23 Glucose, (74-106) 92 mg/dL 09/11/25, 06:23 C-Reactive Protein, (<or=0.5) < 0.50 mg/dL 09/10/25, 06:24 Liver Function Panel: ALT, (10-49) 19 U/L 09/11/25, 06:23 AST, (<34) 21 U/L 09/11/25, 06:23 Cardiac Panel: Troponin I, (<or=76) 7 ng/L 09/09/25 Pancreas Panel: Lipase, (<78) 62 U/L 09/10/25, 06:24 Thyroid Panel: TSH, (0.36-3.74) 1.69 uIU/mL 09/09/25, 11:10 Imaging and Studies Imaging and Studies Study information below may be from another EMR and interpreted by another provider. Please see original notes in EMR for more complete details. EKG Summary: EKG PATIENT NAME: Shiva Hairston UNIT #: [id number] ORDERING PROVIDER: Harley Whitfield PRIMARY CARE PROVIDER: LOW CROSS DATE/TIME OF SERVICE: 09/09/25 1049 : 1970 PERFORMING LOCATION: [place] APPROVED REPORT Exam: Resting ECG Reason for Exam: tachycardia Patient Location: E HR:125 bpm ECG Measurements Heart Rate 125 AXIS UT 132 P 65 QRSd 78 QRS 72 QT 291 T42 QTc 420 Conclusion Sinus tachycardia...rate> 99 Anesthesia Assessment and Plan Anesthesia History Personal History: Unknown Anesthesia History Family History: Family History Unknown Exercise Tolerance Exercise Tolerance: Metabolic Equivalents<4 Pertinent Negatives Pertinent Negatives: No Major Cardiovascular Symptoms or Complaints and No Major Pulmonary Symptoms or Complaints Cardiac & Pulmonary Exam Cardiac Exam: Normal S1/S2 Heart Sounds Pulmonary Exam: Clear Bilateral Breath Sounds Implantable Cardiac Device Does patient have a Pacemaker or an ICD?: No Airway Exam Known Difficult Airway: Yes Previous Airway Comments:: Suspected Mallampati Class: Unable to Assess Mouth Opening: Unable to Assess Thyromental Distance: Less than 3 cm Neck Range of Motion: Limited ROM Neck Circumference: Normal Teeth Condition: Normal Dentition ASA Classification ASA Score: ASA 2 Emergency Case?: No NPO Status NPO Status: NPO Clears >2 hours, Solids >8 hours Anesthesia Plan Resuscitation Status: Full Code Anesthesia Technique: General Anesthesia Airway Planned: Endotracheal Tube Monitors Used: Standard Monitors
[2025-09-23] MEDS: Bupivacaine 0.5% Pres-Free W/EPI 30 ML VIAL (09:22)
[2025-09-23] MEDS: Bupivacaine LIPOSOME/PF 133 MG/10 ML VIAL IJ (09:22)
--- NOTE | 2025-09-23 09:26 | GB_PTH ---
PATIENT: Shiva Hairston LOC: [facility] U#:[id number] AGE/SX: 55/M ROOM: RE09/23/[address]: Isabel Lake MD : 1970 BED: DIS: 09/23/2025 SPEC #: [id number] RECD: 09/23/25 12:43 STATUS: SEUN RE #: [id number] KYMBERLY: 09/23/25 09:[address]: Isabel Lake DEPT: Surgical Specimen RECD BY: Alicia Fields ENTERED: 09/23/25 12:43 SP TYPE: GB OTHR DR: Buck Clark Tissues: 1 - GALLBLADDER Procedures: GROSS AND MICRO LEVEL 3 Comments: [id number]
[2025-09-23] MEDS: Cellulose,Oxidized 4X8 1 PACKET MC (10:24)
--- NOTE | 2025-09-23 11:22 | W.ANESPOSTOP ---
Postoperative Evaluation Date, Time and Location Date Performed: 09/23/25 Time Performed: 11:22 Patient Location: Day Surgery Unit Vital Signs Most Recent Imported Vital Signs: Most Recent Vital Signs Temp Pulse Resp BP Pulse Ox 36.7 C 90 22 106/68 100 09/23/25 11:11 09/23/25 11:11 09/23/25 11:11 09/23/25 11:11 09/23/25 11:11 Pain Score Most Recent Pain Score: Most Recent Pain Score Pain Level 0 09/23/25 11:09 Assessment Mental Status: Awake (Alert & Oriented to Patient Baseline) Airway and Respiratory Function: Patent airway with normal (patient baseline) respiratory exam Cardiovascular Function: Hemodynamically Stable Hydration Status: Adequately Hydrated Nausea & Vomiting: No Nausea or Vomiting Pain: Pt. Denies Any Pain Peripheral Nerve Block: Patient did not receive a nerve block
--- NOTE | 2025-09-23 11:25 | ROE_ITS ---
Operative Note Operative Note PRE-OP DIAGNOSIS: gallstone pancreatitis POST-OP DIAGNOSIS: same (biliary colic) PROCEDURE: Laparoscopic cholecystectomy SURGEON: Isabel Lake AGILE SCRUM MASTER: Usman Martinez ANESTHESIA TYPE: Local By Surgeon and General LMA/ETT Refer to Anesthesia Record ESTIMATED BLOOD LOSS: 70 PATHOLOGY: other (gallbladder) COMPLICATIONS: None Patient's condition: stable Procedure Description: Procedure Description: This is a 55-year-old male who presents for cholecystectomy after an admission for gallstone pancreatitis. Cholecystectomy is indicated. His sister is the guardian. We discussed the procedure risks, benefits, alternatives, and expectations at length in office, see office note for details of that consent conversation. All of the guardian and caregivers questions were answered to their satisfaction. Informed consent was obtained, and on the day of surgery the patient was transferred to the operating room. He was placed supine on the operating table. SCDs were placed and all pressure points were padded appropriately. General anesthesia was induced. The abdomen was clipped prepped and draped in the usual sterile fashion. Timeout was performed. Local anesthetic was infiltrated underneath the umbilicus. An incision was made in the skin and the incision carried down to the umbilical stalk using cautery. The umbilical stalk was elevated using a Rosa clamp and the fascia cleared of its fatty tissues. An incision was made in the fascia, and a Sammi clamp was used to enter the peritoneum. A finger was used to ensure no structures were adhered to the anterior abdominal wall. A Moran trocar was introduced and the abdomen was insufflated to 15 mmHg. Initial laparoscopy confirmed no injury to the intra-abdominal structures. 3 additional 5 mm ports were placed in the upper abdomen under direct visualization. Local anesthetic was infiltrated at each port site. The patient's head was elevated and he was rotated toward the left. The gallbladder was enlarged. There was evidence of significant chronic inflammation in the gallbladder fossa, with adhesions between the mesocolon and the gallbladder. Ligasure device and blunt dissection were used to carefully take these adhesions down to clear the gallbladder off for cholecystectomy. The gallbladder dome finally visualized. It was grasped and retracted cephalad. The remainng adhesions were gently taken down with care taken to avoid bleeding from the friable tissues. The infundibulum was grasped and retracted laterally and a dissection in Calots triangle was pursued with a [place] dissector and a suct ion tool. The cystic duct was dissected free, and two gallstones were milked out of it into the gallbladder. The cystic duct was dissected free and skeletonized. The cystic artery was dissected free and noted to enter the gallbladder high on the backside of the gallbladder. It was skeletonized. The anatomy was confirmed and a modified critical view was obtained, with cystic duct and cystic artery clearly visualized, and the cystic plate claeared as well to ensure to other structures in the field of cholecystectomy. The cystic duct and cystic artery were clipped and transected with EndoShears. Crossing veins and additional dilated veins within the pericholecystic fat were also clipped. The gallbladder was then removed from the liver bed with cautery. It was placed into an Endo Catch bag and removed from the abdomen through the umbilicus. The liver bed was examined. Bleeding areas on the raw surface of the mesocolon and omentum were noted. Irrigation, clips, Ligasure device were used to attain hemostasis. Surgicel was passed into the fossa and removed after 4 minutes. Hemostasis was confirmed. All irrigation fluid was suctioned out and the patient taken out of reverse Trendelenburg position. The 5 mm ports were removed and the abdomen was desufflated with suction over the liver. The umbilical trocar was removed. The umbilical fascia was closed with an 0 Vicryl suture in a [id number] stitch. The remainder of the local anesthetic was mixed with Exparel and infiltrated into the umbilical fascia and other port sites. The incisions were all closed with interrupted 4-0 Monocryl sutures in subcuticular fashion. The incisions were all washed and dried and Steri-Strips applied. The patient tolerated the procedure well. He extubated in the operating room and transferred to the recovery room in stable condition. There were no complications Date of Procedure: 09/23/25
== END 2025-09-23 12:10 | disposition home or self-care (01) ==
PROVIDERS: PCP Internal Medicine; Visit Provider Surgery
PROC: 0FT44ZZ Resection of Gallbladder, Percutaneous Endoscopic Approach (ICD-10-PCS; CPT 47562; principal; 2025-09-23 08:15)
DX: K80.10 Calculus of gallbladder with chronic cholecystitis without obstruction (principal); K85.10 Biliary acute pancreatitis without necrosis or infection; I73.00 Raynaud's syndrome without gangrene; G47.00 Insomnia, unspecified; G80.9 Cerebral palsy, unspecified; Z79.899 Other long term (current) drug therapy
CPT/HCPCS: 47562; 88304; J0131; J0666; J0690; J1885; J2003; J2371; J2405; J2704

== ENCOUNTER → 2025-10-09 12:58 | Outpatient (BNVA) | payer MEDICARE, MEDICAID, SELFPAY | PROVIDERS: PCP Internal Medicine; Referring Provider Internal Medicine; Visit Provider Surgery | DX: Z51.89 Encounter for other specified aftercare (principal); Z90.49 Acquired absence of other specified parts of digestive tract | CPT/HCPCS: 99024 ==